=== PATIENT | female | born 1975 | race Caucasian/White ===

== ENCOUNTER 2019-11-18 19:08 | Emergency (ER) | payer SELFPAY ==
--- OUTSIDE RECORDS SUMMARY | 2019-11-18 19:10 | XMS REPORT ---
:1975 [facility] Address [facility] [address] Quintanilla [address] [place] [id number] Care Team Providers Name Role Phone Unavailable Unavailable Unavailable Problems This patient has no known problems. Allergies, Adverse Reactions, Alerts This patient has no known allergies or adverse reactions. Medications This patient has no known medications.
[2019-11-18 19:59] LABS: Protime INR 1.02
--- NOTE | 2019-11-18 20:02 | RAD REPORT ---
EXAM DESCRIPTION: Roselia Single View11/18/2019 7:50 pm CLINICAL HISTORY: Chest pain COMPARISON: 2017 FINDINGS: The lungs appear clear of acute infiltrate. The heart is normal size IMPRESSION: No acute abnormalities displayed
[2019-11-18 20:11] LABS: ALT/SGPT 14 U/L (12-78); AST/SGOT 15 U/L (15-37); Albumin 3.5 g/dL (3.4-5.0); Alkaline Phosphatase 95 U/L (45-117); BUN Blood Urea Nitrogen 8 mg/dL (7-18); Bicarbonate 27 mmol/L (21-32); Bilirubin Direct < 0.1 mg/dL (0-0.2); Bilirubin Total 0.2 mg/dL (0.2-1.0); Glucose Level 86 mg/dL (74-106); Magnesium 2.1 mg/dL (1.8-2.4); Potassium 3.8 mmol/L (3.5-5.1); Protein, Total 8.2 g/dL (6.4-8.2); Sodium Level 140 mmol/L (136-145); Troponin (Emerg Dept Use Only) < 0.02 ng/mL (0.0-0.045)
[2019-11-18 20:31] LABS: Absolute Lymphocytes (CBC) 2.3 K/uL (0.7-4.9); Basophils % 1.3 % (0-1.3); Hematocrit 28.8 % (36.0-45.0); Lymphocytes % 31.8 % (15.3-44.8); MPV 8.8 fL (7.6-11.3); RBC Red Blood Cell Count 4.64 M/uL (3.86-4.86)
--- NOTE | 2019-11-18 20:54 | ER ---
Nurse's Notes [facility] Name: Lennie Russell Age: 44 yrs Sex: Female : 1975 Arrival Date: 11/18/2019 Time: 19:09 Bed 28 Private MD: Diagnosis: Furuncle of groin;Chest pain, unspecified;Anemia, unspecified Presentation: 11/18 19:39 Presenting complaint: Patient states: I HAVE HAD LEFT ARM NUMBNESS AND SORENESS AND MY ls4 CHEST HURTS WHEN I MOVE FOR THE LAST 3 DAYS. I ALSO HAVE BUG BITES ON MY PRIVATE AREA. Transition of care: patient was not received from another setting of care. Onset of symptoms is unknown. Risk Assessment: Do you want to hurt yourself or someone else? Patient reports no desire to harm self or others. Initial Sepsis Screen: Does the patient meet any 2 criteria? No. Patient's initial sepsis screen is negative. Does the patient have a suspected source of infection? No. Patient's initial sepsis screen is negative. Care prior to arrival: None. 19:39 Method Of Arrival: EMS: [facility] ls4 19:39 Acuity: KATHERINE 3 ls4 Triage Assessment: 19:49 General: Appears in no apparent distress. Behavior is calm, cooperative. Pain: Denies ls4 pain. Cardiovascular: Reports chest pain. Respiratory: Reports shortness of breath at rest. GI: No deficits noted. : No deficits noted. Derm: No deficits noted. Musculoskeletal: No deficits noted. 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 - Coronavirus screen:: The patient has NOT traveled to [place] in the past 14 days. The patient has NOT had contact with known/suspected case of Coronavirus? Proceed with normal triage procedures. - Social history:: Smoking status: Patient reports the use of cigarette tobacco products, Patient uses alcohol, street drugs, marijuana. - Ebola Screening: : No symptoms or risks identified at this time. Screenin:54 Abuse screen: Denies threats or abuse. Denies injuries from another. Nutritional ls4 screening: No deficits noted. Tuberculosis screening: No symptoms or risk factors identified. Fall Risk None identified. Assessment: 19:53 Reassessment: Patient appears in no apparent distress at this time. Patient and/or ls4 family updated on plan of care and expected duration. Pain level reassessed. Patient is alert, oriented x 3, equal unlabored respirations, skin warm/dry/pink. Pain: Complains of pain in left supraclavicular area, left clavicle, anterior aspect of left upper chest and mid-sternal area Pain radiates to left arm. Neuro: No deficits noted. Cardiovascular: Denies diaphoresis, fatigue, lightheadedness, nausea, palpitations, shortness of breath, syncope, vomiting. Respiratory: No deficits noted. Derm: SMALL PUSTULES X 3 ON LABIA. 20:00 Also complains of no other symptoms. General: Appears in no apparent distress. ls4 comfortable, Behavior is calm, cooperative. Pain: Pain currently is 3 out of 10 on a pain scale. Pain began gradually. 20:00 GI: No deficits noted. : No deficits noted. ls4 21:13 Reassessment: Patient appears in no apparent distress at this time. Patient and/or ls4 family updated on plan of care and expected duration. Pain level reassessed. Patient is alert, oriented x 3, equal unlabored respirations, skin warm/dry/pink. Vital Signs: 19:22 BP 145 / 104; Pulse 81; Resp 13; Temp 97.7(O); Pulse Ox 100% on R/A; mg2 20:00 BP 142 / 100; Pulse 89; Resp 14; Temp 98.0(O); Pulse Ox 100% on R/A; Pain 3/10; ls4 21:27 BP 132 / 83; Pulse 78; Resp 14; Temp 98.0(O); Pulse Ox 100% on R/A; Pain 0/10; ls4 Vitals: 20:00 Cardiac Rhythm Assessment Regular Sinus rhythm. ls4 ED Course: 19:09 Patient arrived in ED. cf2 19:10 Patient has correct armband on for positive identification. Placed in gown. Bed in low ls4 position. Call light in reach. Side rails up X 1. 19:10 media monitor on. Pulse ox on. NIBP on. ls4 19:12 Manny Quiroz NP is PHCP. pm1 19:12 Taz Saxena MD is Attending Physician. pm1 19:29 Bree Benedict, RN is Primary Nurse. ls4 19:34 No provider procedures requiring assistance completed. Inserted saline lock: 20 gauge mg2 in left antecubital area, using aseptic technique. Blood collected. 19:40 Triage completed. ls4 19:51 Arm band placed on right wrist. Patient PT IS IN CUSTODY BY [place]. ls4 OFFICERS OUTSIDE OF DOOR. EKG completed in triage. Results shown to MD. 19:56 Initial lab(s) drawn, by ED staff, sent to lab. Patient maintains SpO2 saturation ls4 greater than 95% on room air. 21:28 IV discontinued, intact, bleeding controlled, No redness/swelling at site. Pressure ls4 dressing applied. Administered Medications: 20:54 Not Given (Other Intervention Used): Tetanus-Diphtheria Toxoid Adult 0.5 ml IM once ls4 21:04 Drug: Bactrim (160 mg-800 mg (DS) 1 tablet Route: PO; ls4 21:33 Follow up: Response: No adverse reaction; Marked relief of symptoms ls4 Outcome: 20:53 Discharge ordered by MD. pm1 21:09 Condition: stable ls4 21:11 Discharge instructions given to patient, Instructed on discharge instructions, follow ls4 up and referral plans. medication usage, Demonstrated understanding of instructions, follow-up care, medications, Prescriptions given X 1. 21:32 Patient left the ED. ls4 21:33 Discharged to Law Enforcement ls4 Signatures: Manny Quiroz NP GRINDER DRESSER pm1 Handy Olson RN RN mg2 Bree Benedict RN RN ls4 Carlito Rodríguez cf2 Corrections: (The following items were deleted from the chart) 21:11 21:09 Discharge instructions given to patient, family, Instructed on discharge ls4 instructions, follow up and referral plans. medication usage, safety practices, Demonstrated understanding of instructions, follow-up care, medications, ls4 21:33 21:09 Discharged to home ambulatory, with family, ls4 ls4
--- NOTE | 2019-11-18 20:54 | EDPHYS ---
Physician Documentation [facility] Name: Lennie Russell Age: 44 yrs Sex: Female : 1975 Arrival Date: 11/18/2019 Time: 19:09 Bed 28 Private MD: ED Physician Taz Saxena HPI: 11/18 19:19 This 44 yrs old Female presents to ER via EMS with complaints of Groin Pain, pm1 Chest Pain. 19:19 The patient or guardian reports chest pain that is located primarily in the chest pm1 diffusely. Onset: 3 day(s) ago. The pain does not radiate. Associated signs and symptoms: Pertinent negatives: abdominal pain, cough, diaphoresis, dizziness, headache, nausea, shortness of breath, vomiting. The chest pain is described as sharp. Modifying factors: the symptoms are aggravated by pain to groin area. Patient was just arrested for unpaid traffic violations. She has had chest pain for the past 3 days that she relates to onset of pimples to groin area that started after she shaved her pubic hair. 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 - Coronavirus screen:: The patient has NOT traveled to [place] in the past 14 days. The patient has NOT had contact with known/suspected case of Coronavirus? Proceed with normal triage procedures. - Social history:: Smoking status: Patient reports the use of cigarette tobacco products, Patient uses alcohol, street drugs, marijuana. - Ebola Screening: : No symptoms or risks identified at this time. ROS: 19:19 Constitutional: Negative for fever, chills, and weight loss, Eyes: Negative for injury, pm1 pain, redness, and discharge, ENT: Negative for injury, pain, and discharge, Neck: Negative for injury, pain, and swelling. 19:19 Respiratory: Negative for shortness of breath, cough, wheezing, and pleuritic chest pain, Abdomen/GI: Negative for abdominal pain, nausea, vomiting, diarrhea, and constipation, Back: Negative for injury and pain, : Negative for injury, bleeding, discharge, and swelling. 19:19 MS/Extremity: Negative for injury and deformity. 19:19 Neuro: Negative for headache, weakness, numbness, tingling, and seizure. 19:19 Cardiovascular: Positive for chest pain, Negative for edema, palpitations. 19:19 Skin: Positive for pustules, of the groin. Exam: 19:19 Constitutional: This is a well developed, well nourished patient who is awake, alert, pm1 and in no acute distress. Head/Face: Normocephalic, atraumatic. Neck: Trachea midline, no thyromegaly or masses palpated, and no cervical lymphadenopathy. Supple, full range of motion without nuchal rigidity, or vertebral point tenderness. No Meningismus. Chest/axilla: Normal chest wall appearance and motion. Nontender with no deformity. No lesions are appreciated. Cardiovascular: Regular rate and rhythm with a normal S1 and S2. No gallops, murmurs, or rubs. Normal PMI, no JVD. No pulse deficits. Respiratory: Lungs have equal breath sounds bilaterally, clear to auscultation and percussion. No rales, rhonchi or wheezes noted. No increased work of breathing, no retractions or nasal flaring. Abdomen/GI: Soft, non-tender, with normal bowel sounds. No distension or tympany. No guarding or rebound. No evidence of tenderness throughout. Back: No spinal tenderness. No costovertebral tenderness. Full range of motion. 19:19 MS/ Extremity: Pulses equal, no cyanosis. Neurovascular intact. Full, normal range of motion. 19:19 Skin: Appearance: normal except for affected area, lesion(s), located on the right side of groin, small 2 mm pustule present to right labia majora. 19:19 Neuro: Orientation: is normal, Motor: is normal, moves all fours. Vital Signs: 19:22 BP 145 / 104; Pulse 81; Resp 13; Temp 97.7(O); Pulse Ox 100% on R/A; mg2 20:00 BP 142 / 100; Pulse 89; Resp 14; Temp 98.0(O); Pulse Ox 100% on R/A; Pain 3/10; ls4 21:27 BP 132 / 83; Pulse 78; Resp 14; Temp 98.0(O); Pulse Ox 100% on R/A; Pain 0/10; ls4 MDM: 19:16 Patient medically screened. pm1 20:51 Data reviewed: vital signs. Data interpreted: Pulse oximetry: on room air is 100 %. pm1 Interpretation: normal. Counseling: I had a detailed discussion with the patient and/or guardian regarding: the historical points, exam findings, and any diagnostic results supporting the discharge/admit diagnosis, lab results, radiology results, the need for outpatient follow up, to return to the emergency department if symptoms worsen or persist or if there are any questions or concerns that arise at home. 11/18 19:19 Order name: Basic Metabolic Panel pm1 11/18 19:19 Order name: CBC with Diff pm11/18 19:19 Order name: LFT's pm11/18 19:19 Order name: Magnesium pm11/18 19:19 Order name: PT-INR pm1 11/18 19:19 Order name: Troponin (emerg Dept Use Only) pm1 11/18 19:19 Order name: XRAY Chest (1 view) pm1 11/18 20:01 Order name: Protime (+INR); Complete Time: 20:07 EDMS 11/18 20:12 Order name: Basic Metabolic Panel; Complete Time: 20:35 EDMS 11/18 20:12 Order name: Liver (Hepatic) Function; Complete Time: 20:35 EDMS 11/18 20:12 Order name: Troponin (Emerg Dept Use Only); Complete Time: 20:35 EDMS 11/18 20:12 Order name: Magnesium; Complete Time: 20:35 EDMS 11/18 20:38 Order name: CBC with Automated Diff; Complete Time: 21:18 EDMS 11/18 21:11 Order name: CBC Smear Scan; Complete Time: 21:18 EDMS 11/18 19:19 Order name: EKG; Complete Time: 19:20 pm11/18 19:19 Order name: Cardiac monitoring; Complete Time: 19:24 pm11/18 19:19 Order name: EKG - Nurse/Tech; Complete Time: 19:25 pm11/18 19:19 Order name: IV Saline Lock; Complete Time: 19:34 pm11/18 19:19 Order name: Labs collected and sent; Complete Time: 19:34 pm11/18 19:19 Order name: O2 Per Protocol; Complete Time: 19:25 pm1 11/18 19:19 Order name: O2 Sat Monitoring; Complete Time: 19:25 pm1 11/18 19:19 Order name: Urine Dipstick-Ancillary (obtain specimen); Complete Time: 19:44 pm1 11/18 19:19 Order name: Urine Test (obtain specimen); Complete Time: 19:44 pm1 11/18 20:10 Order name: RAD; Complete Time: 20:35 EDMS Administered Medications: 20:54 Not Given (Other Intervention Used): Tetanus-Diphtheria Toxoid Adult 0.5 ml IM once ls4 21:04 Drug: Bactrim (160 mg-800 mg (DS) 1 tablet Route: PO; ls4 21:33 Follow up: Response: No adverse reaction; Marked relief of symptoms ls4 Disposition: 11/18/19 20:53 Discharged to Home. Impression: Furuncle of groin, Chest pain, unspecified, Anemia, unspecified. - Condition is Stable. - Discharge Instructions: Anemia, Nonspecific, Nonspecific Chest Pain, Ingrown Hair. - Prescriptions for Bactrim DS 800- 160 mg Oral Tablet - take 1 tablet by ORAL route every 12 hours for 10 days; 20 tablet. Diclofenac Sodium 75 mg Oral Tablet Sustained Release - take 1 tablet by ORAL route 2 times per day; 30 tablet. Bactroban 2 % Topical Ointment - Apply to affected area 1 application by TOPICAL route every 12 hours; 30 gram. - Medication Reconciliation Form, Thank You Letter, Antibiotic Education, Prescription Opioid Use form. - Follow up: Emergency Department; When: As needed; Reason: Worsening of condition. Follow up: Private Physician; When: 2 - 3 days; Reason: Recheck today's complaints, Continuance of care, Re-evaluation by your physician. - Problem is new. - Symptoms have improved. Signatures: Dispatcher [employer] EDMS Manny Quiroz NP ELIGIBILITY SUPERVISOR pm1 Bree Benedict RN RN ls4 Corrections: (The following items were deleted from the chart) 21:18 20:53 11/18/2019 20:53 Discharged to Home. Impression: Furuncle of groin; Chest pain, pm1 unspecified. Condition is Stable. Forms are Medication Reconciliation Form, Thank You Letter, Antibiotic Education, Prescription Opioid Use. Follow up: Emergency Department; When: As needed; Reason: Worsening of condition. Follow up: Private Physician; When: 2 - 3 days; Reason: Recheck today's complaints, Continuance of care, Re-evaluation by your physician. Problem is new. Symptoms have improved. pm1 21:32 21:18 11/18/2019 20:53 Discharged to Home. Impression: Furuncle of groin; Chest pain, ls4 unspecified; Anemia, unspecified. Condition is Stable. Discharge Instructions: Nonspecific Chest Pain, Ingrown Hair. Prescriptions for Bactroban 2 % Topical Ointment - Apply to affected area 1 application by TOPICAL route every 12 hours; 30 gram, Bactrim DS 800-160 mg Oral Tablet - take 1 tablet by ORAL route every 12 hours for 10 days; 20 tablet, Diclofenac Sodium 75 mg Oral Tablet Sustained Release - take 1 tablet by ORAL route 2 times per day; 30 tablet. and Forms are Medication Reconciliation Form, Thank You Letter, Antibiotic Education, Prescription Opioid Use. Follow up: Emergency Department; When: As needed; Reason: Worsening of condition. Follow up: Private Physician; When: 2 - 3 days; Reason: Recheck today's complaints, Continuance of care, Re-evaluation by your physician. Problem is new. Symptoms have improved. pm1
[2019-11-18] MEDS ORDERED: SMZ./TMP. 800/160 MG TABLET ONE (21:03)
[2019-11-18 21:09] LABS: Platelet Estimate INCR; Urine White Blood Cell Casts OK
[2019-11-18 21:10] LABS: Blood Morphology Comment NOTED (NOT SEEN); Burr Cells 1+; Elliptocytes 2+; Hypochromasia 2+; Platelets, Giant SEEN; Teardrop Cell 1+
--- NOTE | 2019-11-19 08:53 | EKG ---
Test Date: 2019-11-18 Test Time: 19:33:46 Resident Physician In Radiology: KIANNA MEASUREMENT RESULTS: Intervals: Rate: 84 UT: 140 QRSD: 74 QT: 364 QTc: 430 [place]lette: P: 66 UT: 140 QRS: 35 T: 56 INTERPRETIVE STATEMENTS: Normal sinus rhythm Normal ECG Compared to ECG 11/10/2016 22:29:02 No significant changes Electronically Signed On 11-19-19 08:52:34 ADJUNCT SOCIOLOGY PROFESSOR by Roger Lopez
[2019-11-20 11:53] VITALS: O2SAT 100
[2019-11-20 11:55] VITALS: TEMP 98
[2019-11-20 11:57] VITALS: BP 132/83
== END 2019-11-18 21:32 | disposition home or self-care (01) ==
LOC: ER 19:08
DX: L02.224 Furuncle of groin (principal); R07.9 Chest pain, unspecified; D64.9 Anemia, unspecified; F17.210 Nicotine dependence, cigarettes, uncomplicated; Z72.89 Other problems related to lifestyle; F12.90 Cannabis use, unspecified, uncomplicated
CPT/HCPCS: 36415; 71045; 80048; 80076; 83735; 84484; 85025; 85610; 93005; 99285

== ENCOUNTER 2020-02-27 16:56 | Emergency (ER) | payer SELFPAY ==
--- OUTSIDE RECORDS SUMMARY | 2020-02-27 16:58 | XMS REPORT ---
:1975 Author Organization [facility] t Address [address] Quintanilla [address] [place] [id number] Care Team Providers Name Role Phone Unavailable Unavailable Unavailable Problems This patient has no known problems. Allergies, Adverse Reactions, Alerts This patient has no known allergies or adverse reactions. Medications This patient has no known medications. Procedures This patient has no known procedures. Results This patient has no known results.
--- NOTE | 2020-02-27 18:09 | RAD REPORT ---
EXAM DESCRIPTION: RAD - Chest Single View - 02/27/2020 6:01 pm CLINICAL HISTORY: CHEST PAIN COMPARISON: November 18 TECHNIQUE: AP portable chest image was obtained 02/27/2020 6:01 pm . FINDINGS: No acute lung parenchymal process. Interstitial pattern matches comparison. Heart and vasc ulature are normal. No measurable pleural effusion and no pneumothorax. No acute bony abnormality see n. Left shoulder degenerative changes are stable. No acute aortic findings suspected. IMPRESSION: No acute cardiopulmonary process. No significant change from comparison.
[2020-02-27 18:25] LABS: Absolute Lymphocytes (CBC) 1.8 K/uL (0.7-4.9); Basophils % 0.5 % (0-1.3); Hematocrit 31.7 % (36.0-45.0); Lymphocytes % 21.8 % (15.3-44.8); RBC Red Blood Cell Count 4.96 M/uL (3.86-4.86)
[2020-02-27 18:26] LABS: Protime INR 0.96
[2020-02-27 18:40] LABS: ALT/SGPT 17 U/L (12-78); AST/SGOT 11 U/L (15-37); Albumin 3.4 g/dL (3.4-5.0); Alkaline Phosphatase 102 U/L (45-117); BUN Blood Urea Nitrogen 12 mg/dL (7-18); Bicarbonate 23 mmol/L (21-32); Bilirubin Direct < 0.1 mg/dL (0-0.2); Bilirubin Total 0.1 mg/dL (0.2-1.0); Glucose Level 93 mg/dL (74-106); Magnesium 2.1 mg/dL (1.8-2.4); NT PRO-BNP 38 pg/mL (<125); Potassium 4.6 mmol/L (3.5-5.1); Protein, Total 8.4 g/dL (6.4-8.2); Sodium Level 139 mmol/L (136-145); Troponin (Emerg Dept Use Only) < 0.02 ng/mL (0.0-0.045)
--- NOTE | 2020-02-27 19:13 | ER ---
Nurse's Notes [facility] Name: Lennie Russell Age: 44 yrs Sex: Female : 1975 Arrival Date: 02/27/2020 Time: 16:57 Bed 7 Private MD: Diagnosis: Chest pain, unspecified;Dental caries Presentation: 02/26 16:58 Chief complaint: EMS states: called out for a toothache that started 3 days ago, that em turned into a headache then into chest pain, pt states she is stressed, pt in [employer] custody, officer at bedside, VSS, EKG SR. Coronavirus screen: Proceed with normal triage. Patient reports a cough. Patient reports shortness of breath or difficulty breathing. Patient denies measured and/or subjective temperature greater than 100.4F prior to today's visit. Patient denies travel on a cruise ship or to a country the [facility] currently lists as an affected area. Patient denies contact with known and/or suspected case of COVID-19. Ebola Screen: Patient negative for fever greater than or equal to 101.5 degrees Fahrenheit, and additional compatible Ebola Virus Disease symptoms Patient denies exposure to infectious person. Patient denies travel to an Ebola-affected area in the 21 days before illness onset. No symptoms or risks identified at this time. Initial Sepsis Screen: Does the patient meet any 2 criteria? No. Patient's initial sepsis screen is negative. Does the patient have a suspected source of infection? No. Patient's initial sepsis screen is negative. Risk Assessment: Do you want to hurt yourself or someone else? Patient reports no desire to harm self or others. Onset of symptoms was February 27, 2020. 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 - Social history:: Smoking status: Patient reports the use of cigarette tobacco products, denies chronic smoking, but will smoke occasionally. Screenin:58 Abuse screen: Denies threats or abuse. Denies injuries from another. Nutritional ph screening: No deficits noted. Tuberculosis screening: No symptoms or risk factors identified. Fall Risk None identified. Assessment: 17:56 General: Appears in no apparent distress. comfortable, Behavior is calm, cooperative, ph appropriate for age, Denies fever, feeling ill. Pain: Complains of pain in chest Pain does not radiate. Quality of pain is described as sharp, Pain began suddenly. Neuro: Level of Consciousness is awake, alert, obeys commands, Oriented to person, place, time, situation. Cardiovascular: Reports chest pain, Denies lightheadedness, nausea, shortness of breath, Capillary refill < 3 seconds in bilateral fingers Patient's skin is warm and dry. Respiratory: Reports cough that is non-productive, Airway is patent Respiratory effort is even, unlabored, Respiratory pattern is regular, symmetrical, Denies shortness of breath. GI: No signs and/or symptoms were reported involving the gastrointestinal system. EENT: Reports pain in mouth. Derm: Skin is intact, Skin is pink, warm \T\ dry. Musculoskeletal: Circulation, motion, and sensation intact. Range of motion: intact in all extremities. 19:10 Reassessment: Patient appears in no apparent distress at this time. Patient and/or ph family updated on plan of care and expected duration. Pain level reassessed. Patient is alert, oriented x 3, equal unlabored respirations, skin warm/dry/pink. 19:27 Reassessment: Patient appears in no apparent distress at this time. Patient is alert, rr5 oriented x 3, equal unlabored respirations, skin warm/dry/pink. discharge instruction given and explained without complaints made. assisted by [employer] police. Vital Signs: 16:58 BP 131 / 92; Pulse 90; Resp 20; Temp 97.8; Pulse Ox 100% on R/A; Weight 63.5 kg; Height em 5 ft. 4 in. (162.56 cm); Pain 7/10; 19:11 BP 158 / 93; Pulse 98; Resp 20; Pulse Ox 98% on R/A; ph 16:58 Body Mass Index 24.03 (63.50 kg, 162.56 cm) em ED Course: 16:57 Patient arrived in ED. em 16:59 Tu Gross MD is Attending Physician. [facility] 17:02 Triage completed. em 17:02 Arm band placed on. em 17:30 Yas Walters, RN is Primary Nurse. ph 17:56 Yas Walters, KRISTY is Primary Nurse. ph 17:59 Patient has correct armband on for positive identification. Placed in gown. Bed in low ph position. Call light in reach. Side rails up X 1. library monitor on. Pulse ox on. NIBP on. Door closed. Noise minimized. Warm blanket given. 17:59 Patient maintains SpO2 saturation greater than 95% on room air. ph 18:02 XRAY Chest (1 view) In Process Unspecified. EDMS 19:11 No provider procedures requiring assistance completed. ph 19:12 Rodney More DDS is Referral Physician. 7 19:28 Patient did not have IV access during this emergency room visit. rr5 Administered Medications: 19:05 Drug: TORadol 30 mg Route: IM; Site: left deltoid; rr5 19:28 Follow up: Response: No adverse reaction rr5 19:10 CANCELLED (Other Intervention Used): TORadol 30 mg IVP once ph Outcome: 19:13 Discharge ordered by . 7 19:28 Discharged to Law Enforcement rr5 19:28 Condition: stable 19:28 Discharge instructions given to patient, Instructed on discharge instructions, follow up and referral plans. medication usage, Demonstrated understanding of instructions, follow-up care, medications, Prescriptions given X 1. 19:31 Patient left the ED. rr5 Signatures: Dispatcher [employer] EDDane Mora RN RN Yas Walters RN RN Presley Moralez RN RN rr5 Tu Gross MD MD 7 Corrections: (The following items were deleted from the chart) 17:03 16:58 Chief complaint: EMS states: called out for a toothache that started 3 days ago, em that turned into a headache then into chest pain, pt states she is stressed, pt in [employer] custody, officer at bedside em
--- NOTE | 2020-02-27 19:13 | EDPHYS ---
Physician Documentation [facility] [place] Name: Lennie Russell Age: 44 yrs Sex: Female : 1975 Arrival Date: 02/27/2020 Time: 16:57 Bed 7 Private MD: ED Physician Tu Gross HPI: 02/26 17:37 This 44 yrs old Female presents to ER via EMS with complaints of Chest Pain. mh7 17:37 The patient or guardian reports chest pain that is located primarily in the anterior mh7 chest wall. Onset: 3 day(s) ago. The pain does not radiate. Associated signs and symptoms: Pertinent positives: cough, tootache, Pertinent negatives: abdominal pain, diaphoresis, dizziness, headache, lower extremity pain, lower extremity swelling, lightheadedness, nausea, near syncope, palpitations, recent travel, shortness of breath, syncope, vomiting. The chest pain is described as sharp. Duration: The patient or guardian reports multiple episodes, that are intermittent, that wax and wane, with no pattern. Modifying factors: The symptoms are alleviated by nothing. the symptoms are aggravated by nothing. Severity of pain: At its worst the pain was moderate today, in the emergency department the pain is unchanged. The patient has experienced similar episodes in the past, several times. Patient brought to the ED from [facility] due to chest pain for 3 days intermittently. Patient states that she has had a toothache as well. She denies any fever, SOB, nausea, vomiting, or recent travel.. [employer]: 19:11 LMP N/A - Irregular menses ph Historical: - Allergies: 17:02 No Known Allergies; em - PMHx: 17:02 ventricular septal defect; em - PSHx: 17:02 Tubal ligation; em - Immunization history:: Adult Immunizations up to date. - Social history:: Smoking status: Patient reports the use of cigarette tobacco products, denies chronic smoking, but will smoke occasionally. ROS: 17:37 Constitutional: Negative for fever, chills, and weight loss, Eyes: Negative for injury, mh7 pain, redness, and discharge, Neck: Negative for injury, pain, and swelling, Abdomen/GI: Negative for abdominal pain, nausea, vomiting, diarrhea, and constipation, Back: Negative for injury and pain, : Negative for injury, bleeding, discharge, and swelling, MS/Extremity: Negative for injury and deformity, Skin: Negative for injury, rash, and discoloration, Neuro: Negative for headache, weakness, numbness, tingling, and seizure, Allergy/Immunology: Negative for hives, rash, and allergies, Endocrine: Negative for neck swelling, polydipsia, polyuria, polyphagia, and marked weight changes, Hematologic/Lymphatic: Negative for swollen nodes, abnormal bleeding, and unusual bruising. Exam: 17:37 Constitutional: This is a well developed, well nourished patient who is awake, alert, mh7 and in no acute distress. Head/Face: Normocephalic, atraumatic. Neck: Trachea midline, no thyromegaly or masses palpated, and no cervical lymphadenopathy. Supple, full range of motion without nuchal rigidity, or vertebral point tenderness. No Meningismus. Chest/axilla: Normal chest wall appearance and motion. Nontender with no deformity. No lesions are appreciated. Cardiovascular: Regular rate and rhythm with a normal S1 and S2. No gallops, murmurs, or rubs. Normal PMI, no JVD. No pulse deficits. Respiratory: Lungs have equal breath sounds bilaterally, clear to auscultation and percussion. No rales, rhonchi or wheezes noted. No increased work of breathing, no retractions or nasal flaring. Abdomen/GI: Soft, non-tender, with normal bowel sounds. No distension or tympany. No guarding or rebound. No evidence of tenderness throughout. Back: No spinal tenderness. No costovertebral tenderness. Full range of motion. Skin: Warm, dry with normal turgor. Normal color with no rashes, no lesions, and no evidence of cellulitis. MS/ Extremity: Pulses equal, no cyanosis. Neurovascular intact. Full, normal range of motion. Neuro: Awake and alert, GCS 15, oriented to person, place, time, and situation. Cranial nerves II-XII grossly intact. Motor strength 5/5 in all extremities. Sensory grossly intact. Cerebellar exam normal. Normal gait. 17:37 Psych: Behavior/mood is anxious. 17:45 ECG was reviewed by the Attending Physician. 7 17:53 ENT: External ear(s): are unremarkable, Ear canal(s): are normal, TM's: are normal, mh7 Nose: is normal, Mouth: is normal, Dental exam: dental caries, that is moderate, diffusely, Voice: is normal. Vital Signs: 16:58 BP 131 / 92; Pulse 90; Resp 20; Temp 97.8; Pulse Ox 100% on R/A; Weight 63.5 kg; Height em 5 ft. 4 in. (162.56 cm); Pain 7/10; 19:11 BP 158 / 93; Pulse 98; Resp 20; Pulse Ox 98% on R/A; ph 16:58 Body Mass Index 24.03 (63.50 kg, 162.56 cm) em MDM: 17:21 Patient medically screened. mh7 19:09 Differential diagnosis: acute myocardial infarction, coronary artery disease chest wall mh7 pain, costochondritis, pneumonia. HEART Score: History: Slightly Suspicious (0), ECG: Normal (0), Age: < or = 45 years (0), Risk Factors: 1 or 2 risk factors (1), [Active Smoker] Troponin: < or = 1 x Normal Limit (0), Total Score = 1. Data reviewed: vital signs, nurses notes, old medical records, lab test result(s), cardiac enzymes, CBC, electrolytes, EKG, radiologic studies, plain films. Data interpreted: court recording monitor: rate is 90 beats/min, rhythm is normal sinus rhythm, regular, Interpretation: normal rate, normal rhythm, Pulse oximetry: on room air is 100 %. Interpretation: normal. Counseling: I had a detailed discussion with the patient and/or guardian regarding: the historical points, exam findings, and any diagnostic results supporting the discharge/admit diagnosis, lab results, radiology results, the need for outpatient follow up. 02/27 07:50 ED course: Feels better, NAD, VSS, no focal neurological deficits. No chest pain, SOB, mh7 nausea, vomiting, or other complaints. Discussed all test results and findings with the patient and answered all of her questions. She will follow up with her doctor but will return to the ED if worsening of symptoms or other concerns.. 02/26 17:29 Order name: Basic Metabolic Panel; Complete Time: 18:55 7 02/26 17:29 Order name: CBC with Diff; Complete Time: 18:55 7 02/26 17:29 Order name: LFT's; Complete Time: 18:55 [facility] 02/26 17:29 Order name: Magnesium; Complete Time: 18:55 [facility] 02/26 17:29 Order name: NT PRO-BNP; Complete Time: 18:55 [facility] 02/26 17:29 Order name: PT-INR; Complete Time: 18:55 [facility] 02/26 17:29 Order name: Troponin (emerg Dept Use Only); Complete Time: 18:55 [facility] 02/26 17:29 Order name: XRAY Chest (1 view); Complete Time: 18:40 [facility] 02/26 17:29 Order name: UDS [facility] 02/26 17:29 Order name: Test, Serum; Complete Time: 18:40 [facility] 02/26 19:13 Order name: Urine Dipstick--Ancillary (enter results) [facility] 02/26 19:13 Order name: Urine --Ancillary (enter results) [facility] 02/26 17:29 Order name: EKG; Complete Time: 17:30 [facility] 02/26 17:29 Order name: Cardiac monitoring; Complete Time: 18:03 [facility] 02/26 17:29 Order name: EKG - Nurse/Tech; Complete Time: 18:20 [facility] 02/26 17:29 Order name: Labs collected and sent; Complete Time: 18:03 [facility] 02/26 17:29 Order name: O2 Per Protocol; Complete Time: 18:03 [facility] 02/26 17:29 Order name: O2 Sat Monitoring; Complete Time: 18:03 7 EC/22 17:45 Rate is 97 beats/min. Rhythm is regular. QRS [place] is Normal. MS interval is normal. QRS mh7 interval is normal. QT interval is normal. No Q waves. T waves are Normal. No ST changes noted. Administered Medications: 19:05 Drug: TORadol 30 mg Route: IM; Site: left deltoid; rr5 19:28 Follow up: Response: No adverse reaction rr5 19:10 CANCELLED (Other Intervention Used): TORadol 30 mg IVP once ph Disposition: 02/27/20 19:13 Discharged to Home. Impression: Chest pain, unspecified, Dental caries. - Condition is Stable. - Discharge Instructions: Nonspecific Chest Pain, Afws-at-Tays, Dental Caries, Bbly-wl-Yttw. - Prescriptions for Augmentin 500- 125 mg Oral Tablet - take 1 tablet by ORAL route every 8 hours for 10 days; 30 tablet. - Medication Reconciliation Form, Thank You Letter, Antibiotic Education, Prescription Opioid Use form. - Follow up: Private Physician; When: 1 - 2 days; Reason: Worsening of condition, Re-evaluation by your physician. Follow up: Rodney More DDS; When: 2 - 3 days; Reason: Worsening of condition, Re-evaluation by your physician. - Problem is chronic. - Symptoms are resolved. Signatures: Dispatcher [employer] Dane Oh RN RN Yas Walters RN RN ph Presley Moralez RN RN rr5 Tu Gross MD MD [facility] Corrections: (The following items were deleted from the chart) 19:10 18:55 TORadol 30 mg IVP once ordered. [facility] 19:28 19:13 02/27/2020 19:13 Discharged to Home. Impression: Chest pain, unspecified; Dental rr5 caries. Condition is Stable. Forms are Medication Reconciliation Form, Thank You Letter, Antibiotic Education, Prescription Opioid Use. Follow up: Private Physician; When: 1 - 2 days; Reason: Worsening of condition, Re-evaluation by your physician. Follow up: Rodney More; When: 2 - 3 days; Reason: Worsening of condition, Re-evaluation by your physician. Problem is chronic. Symptoms are resolved. [facility] 19:31 19:28 02/27/2020 19:13 Discharged to Home. Impression: Chest pain, unspecified; Dental rr5 caries. Condition is Stable. Discharge Instructions: Nonspecific Chest Pain, [id number], Dental Caries, Ziqt-kg-Eslw. Prescriptions for Augmentin 500-125 mg Oral Tablet - take 1 tablet by ORAL route every 8 hours for 10 days; 30 tablet. and Forms are Medication Reconciliation Form, Thank You Letter, Antibiotic Education, Prescription Opioid Use. Follow up: Private Physician; When: 1 - 2 days; Reason: Worsening of condition, Re-evaluation by your physician. Follow up: Rodney More; When: 2 - 3 days; Reason: Worsening of condition, Re-evaluation by your physician. Problem is chronic. Symptoms are resolved. rr5
[2020-02-27] MEDS ORDERED: KETOROLAC 30 MG/ML INJ ONE (19:21)
[2020-02-27 19:23] LABS: Barbiturates NEGATIVE (NEGATIVE); Benzodiazepines NEGATIVE (NEGATIVE); Cocaine NEGATIVE (NEGATIVE); METHAMPHETAM POSITIVE (NEGATIVE); Methadone NEGATIVE (NEGATIVE); Opiates NEGATIVE (NEGATIVE); Phencyclidine NEGATIVE (NEGATIVE); THC Cannibis NEGATIVE (NEGATIVE)
[2020-02-27 19:24] LABS: Urine Blood NEGATIVE (NEG); Urine Glucose NEGATIVE (NEG); Urine Protein TRACE (NEG); Urine Specific Gravity >1.030 (1.005-1.030)
[2020-02-27 19:47] VITALS: TEMP 97.8
[2020-02-27 19:52] VITALS: BP 158/93; O2SAT 98
--- NOTE | 2020-02-28 08:05 | EKG ---
Test Date: 2020-02-27 Test Time: 17:06:01 Account Executive Sales Representative: YANA MEASUREMENT RESULTS: Intervals: Rate: 97 MS: 126 QRSD: 72 QT: 320 QTc: 406 [place]: P: 78 MS: 126 QRS: 26 T: 69 INTERPRETIVE STATEMENTS: Normal sinus rhythm Normal ECG Compared to ECG 11/18/2019 19:33:46 No significant changes Electronically Signed On 02-28-20 08:04:08 CDT by Baldev Tian
== END 2020-02-27 19:31 | disposition home or self-care (01) ==
LOC: ER 16:56
DX: K02.9 Dental caries, unspecified (principal); F17.210 Nicotine dependence, cigarettes, uncomplicated
CPT/HCPCS: 36415; 71045; 80048; 80076; 80307; 81003; 81025; 83735; 83880; 84484; 84703; 85025; 85610; 93005; 96372; 99285

== ENCOUNTER 2022-10-09 13:08 | Emergency (ER) | payer SELFPAY ==
--- OUTSIDE RECORDS SUMMARY | 2022-10-09 13:18 | XMS REPORT | Continuity of Care Document ---
:1975 Author Organization [facility] t Address [address] [place] [id number] Care Team Providers Name Role Phone Mona Mcclelland Attending Clinician Doctor Unassigned, [place] Attending Clinician Unavailable TIGRE FAGAN Attending Clinician Unavailable Payers Payer Name Policy Type Policy Number Effective Date Expiration Date S josy MEDICAID SSI PENDING 2019 2019 PENDING 00:00:00 00:00:00 Problems Condition Condition Condition Status Onset Resolution Last Treating Co mments Source Name Details Category Date Date Treatment Clinician Date No known No known Disease Unive rs active active ity of problems problems [facility] Allergies, Adverse Reactions, Alerts Allergy Allergy Status Severity Reaction(s) Onset Inactive Treating Comm ents Source Name Type Date Date Clinician NO KNOWN Drug Active Univers ALLERGIE Class ity of S [facility] Social History Social Habit Start Date Stop Date Quantity Comments Source Exposure to SARS-CoV-2 Not sure [facility] [place] [facility] Assigned At Uni vers[facility] Smoking Status Start Date Stop Date Source Unknown if ever smoked [facility] Medications Ordered Filled Start Stop Current Ordering Indication Dosage Frequency Signature Comments Components Source Medication Medication Date Date Medication? Clinician (SIG) Name Name clindamycin 2018-10 Yes [id number] 300mg Take 1 Univers 300 mg 0-03 capsule by ity of capsule 00:00: mouth 3 [place] 00 (three) Medical times Branch daily. traMADol 2018-10 Yes [id number] 50mg Take 1 Un reyanldo (ULTRAM) 50 0-03 tablet by ity of mg tablet 00:00: mouth [place] 00 every 6 Medical (six) Branch hours as needed for Pain (scale 7-10). clindamycin 2018-10 Yes [id number] 300mg Take 1 Univers 300 mg 0-03 capsule by ity of capsule 00:00: mouth 3 (three) Medical times Branch daily. traMADol 2018- Yes [id number] 50mg Take 1 Un reynaldo (ULTRAM) 50 0-03 tablet by ity of mg tablet 00:00: mouth 00 every 6 Medical (six) Branch hours as needed for Pain (scale 7-10). Vital Signs Vital Name Observation Time Observation Value Comments Source Systolic blood 2020-09-17 00:40:00 119 mm[Hg] Univer sity of pressure [facility] Diastolic blood 2020-09-17 00:40:00 90 mm[Hg] Unive rsity of [facility] Heart rate 2020-09-17 00:40:00 107 /min [facility] Body temperature 2020-09-17 00:40:00 36.94 Safia [facility] Respiratory rate 2020-09-17 00:40:00 16 /min [facility] Body height 2020-09-17 00:40:00 162.6 cm [facility] Body weight 2020-09-17 00:40:00 65.772 kg [facility] BMI 2020-09-17 00:40:00 24.89 kg/m2 [facility] Oxygen saturation in 2020-09-17 00:40:00 99 /min [facility] Arterial blood by [facility] Pulse oximetry [facility] Procedures Procedure Date / Time Performed Performing Clinician [facility] e NOTICE OF PRIVACY 2020-09-17 00:32:07 Doctor Unassigned, No Univ [facility] Name [facility] CONSENT/REFUSAL FOR 2020-09-17 00:31:51 Doctor Unassigned, No Un [facility] DIAGNOSIS AND Name Medical Branch TREATMENT Encounters Start End Encounter Admission Attending Care Care Encounter Source Date/Time Date/Time Type Type Clinicians Facility Department ID 2020-09-16 2020-09-16 Emergency Vincent, [facility] [id number] Univers 18:48:00 20:11:00 Mona Spicer [id number] i ty of [place] [id number] [facility] [id number] [place] 084 Branch 2020-09-16 2020-09-16 Emergency X [facility] ERT [id number] Univers 18:33:00 18:33:00 ity of [facility] 2020-09-16 2020-09-16 Orders Doctor ALBARO [id number] Univers 00:00:00 00:00:00 Only Unassigned, GWYN [id number] ity of [place] [facility] [id number] Karthik as [phone] [place] [address] Branch 2019-07-09 2019-07-10 Emergency X RYLAN CATERE ERT [id number] Univers 21:52:45 00:31:00 TIGRE panchal of [facility] Results This patient has no known results.
--- NOTE | 2022-10-09 16:10 | RAD REPORT ---
EXAM DESCRIPTION: Roselia Single View10/09/2022 3:44 pm CLINICAL HISTORY: Chest pain COMPARISON: 2019 FINDINGS: The lungs appear clear of acute infiltrate. The heart is normal size IMPRESSION: No acute abnormalities displayed
[2022-10-09 16:42] LABS: Absolute Lymphocytes (CBC) 2.5 K/uL (0.7-4.9); Hematocrit 32.5 % (36.0-45.0); Lymphocytes % 21.3 % (15.3-44.8); MCV 78.3 fL (80-100); MPV 8.3 fL (7.6-11.3); RBC Red Blood Cell Count 4.15 M/uL (3.86-4.86)
[2022-10-09 16:44] LABS: Protime INR 0.91
--- NOTE | 2022-10-09 16:50 | EDPHYS ---
Physician Documentation [facility] Name: Lennie Russell Age: 46 yrs Sex: Female : 1975 Arrival Date: 10/09/2022 Time: 13:09 Bed IW1 Private MD: ED Physician Roxy Masterson HPI: 10/09 14:27 This 46 yrs old Female presents to ER via Ambulatory with complaints of Abscess - hand, jmm Chest Pain, Hand Swelling, Insect Bite. 14:27 the patient presents with a swollen area of the left arm. Onset: The symptoms/episode jmm began/occurred gradually, 1 week(s) ago. Possible cause(s): insect sting, spider bite. This is a 46-year-old female with history of VSD the presents emerged part with complaints of swelling to her left wrist. Patient states this is similar to previous abscess that she has had in the past. Patient unsure of the cause. Patient also complains of ongoing chest pain which she describes as a sharp pressure beginning this morning around 4 AM.. Historical: - Allergies: 15:36 No Known Allergies; ss - Home Meds: 15:36 None [Active]; ss - PMHx: 15:36 ventricular septal defect; ss - PSHx: 15:36 None; ss - Immunization history:: Client reports having NOT received the Covid vaccine. - Social history:: Smoking status: Patient reports the use of cigarette tobacco products, smokes one pack cigarettes per day. ROS: 14:27 Constitutional: Negative for fever, chills, and weight loss. jmm 14:27 Cardiovascular: Positive for chest pain. 14:27 MS/extremity: Positive for swelling. 14:27 All other systems are negative. Exam: 14:27 Constitutional: This is a well developed, well nourished patient who is awake, alert, jmm and in no acute distress. Head/Face: atraumatic. Eyes: EOMI, no conjunctival erythema appreciated ENT: Moist Mucus Membranes Neck: Trachea midline, Supple Chest/axilla: Normal chest wall appearance and motion. Cardiovascular: Regular rate and rhythm. No edema appreciated Respiratory: Normal respirations, no respiratory distress appreciated Abdomen/GI: Non distended Back: Normal ROM 14:27 Skin: Swelling noted to the left lateral rest, area is fluctuant, tender to palpation, induration appreciated. 14:27 Neuro: Orientation: is normal, Mentation: is normal, Memory: is normal. 14:27 Psych: Behavior/mood is pleasant, cooperative. Vital Signs: 15:34 Pulse 84; Resp 19; Temp 98.0(O); Pulse Ox 99% on R/A; Weight 77.11 kg; Height 5 ft. 4 ss in. (162.56 cm); Pain 9/10; 15:34 Body Mass Index 29.18 (77.11 kg, 162.56 cm) ss MDM: 14:27 Patient medically screened. [facility] 16:48 Data reviewed: vital signs, nurses notes. Counseling: I had a detailed discussion with [facility] the patient and/or guardian regarding: to return to the emergency department if symptoms worsen or persist or if there are any questions or concerns that arise at home. ED course: Patient eloped from the ED prior to final disposition. 10/09 14:28 Order name: Basic Metabolic Panel [facility] 10/09 14:28 Order name: CBC with Diff; Complete Time: 16:50 [facility] 10/09 14:28 Order name: LFT's [facility] 10/09 14:28 Order name: Magnesium [facility] 10/09 14:28 Order name: NT PRO-BNP [facility] 10/09 14:28 Order name: PT-INR; Complete Time: 16:50 [facility] 10/09 14:28 Order name: Troponin HS [facility] 10/09 14:28 Order name: XRAY Chest (1 view); Complete Time: 16:20 [facility] 10/09 14:28 Order name: Cardiac monitoring [facility] 10/09 14:28 Order name: EKG - Nurse/Tech [facility] 10/09 14:28 Order name: D-Dimer; Complete Time: 16:50 [facility] 10/09 14:28 Order name: Blood Culture Adult (2) [facility] 10/09 14:28 Order name: Lactate w/ 2H reflex if indic. [facility] 10/09 14:28 Order name: IV Saline Lock [facility] 10/09 14:28 Order name: Labs collected and sent [facility] 10/09 14:28 Order name: O2 Per Protocol [facility] 10/09 14:28 Order name: O2 Sat Monitoring [facility] Administered Medications: No medications were administered Disposition Summary: 10/09/22 16:50 Discharge Ordered Location: Unknown [facility] Condition: Stable jmm Diagnosis - Left Forearm Abscess jmm - Chest Pain jmm Followup: [facility] - With: Private Physician - When: 2 - 3 days - Reason: Recheck today's complaints, Continuance of care, Re-evaluation by your physician Forms: - Medication Reconciliation Form [facility] - Thank You Letter [facility] - Antibiotic Education m - Prescription Opioid Use [facility] Addendum: 10/12/2022 22:38 STAFF ATTESTATION STATEMENT: I was immediately available onsite in the emergency s d2 department for consultation in the care of this patient. I did not see or examine this patient. Roxy Masterson MD. Signatures: Dispatcher [employer] EDMS Raj Salguero PA PA jmm Smirch, Shelby, RN RN Roxy Masterson MD MD sd2
--- NOTE | 2022-10-09 16:50 | ER ---
Nurse's Notes [facility] Name: Lennie Russell Age: 46 yrs Sex: Female : 1975 Arrival Date: 10/09/2022 Time: 13:09 Bed IW1 Private MD: Diagnosis: Left Forearm Abscess;Chest Pain Presentation: 10/09 15:34 Chief complaint: Patient states: "I woke up with chest pain this morning, and when I ss looked at my arm I saw that it was swollen." Abscess noted to L wrist area. Coronavirus screen: Client denies travel out of the [place] in the last 14 days. Ebola Screen: Patient denies exposure to infectious person. Patient denies travel to an Ebola-affected area in the 21 days before illness onset. Initial Sepsis Screen: Does the patient meet any 2 criteria? No. Patient's initial sepsis screen is negative. Does the patient have a suspected source of infection? Yes: Skin breakdown/wound. Risk Assessment: Do you want to hurt yourself or someone else? Patient reports no desire to harm self or others. Onset of symptoms was October 09, 2022. 15:34 Method Of Arrival: Ambulatory ss 15:34 Acuity: KATHERINE 3 ss Historical: - Allergies: 15:36 No Known Allergies; ss - Home Meds: 15:36 None [Active]; ss - PMHx: 15:36 ventricular septal defect; ss - PSHx: 15:36 None; ss - Immunization history:: Client reports having NOT received the Covid vaccine. - Social history:: Smoking status: Patient reports the use of cigarette tobacco products, smokes one pack cigarettes per day. Assessment: 16:34 Reassessment: Pt states, "I'm leaving! I'm tired of sitting around here." ABDIRAHMAN Anthony ss notified. Vital Signs: 15:34 Pulse 84; Resp 19; Temp 98.0(O); Pulse Ox 99% on R/A; Weight 77.11 kg; Height 5 ft. 4 ss in. (162.56 cm); Pain 9/10; 15:34 Body Mass Index 29.18 (77.11 kg, 162.56 cm) ED Course: 13:09 Patient arrived in ED. am2 13:31 Raj Salguero PA is PHCP. jmm 13:31 Roxy Masterson MD is Attending Physician. jmm 15:36 Triage completed. ss 15:36 Arm band placed on left wrist. ss 15:46 XRAY Chest (1 view) In Process Unspecified. EDMS Administered Medications: No medications were administered Outcome: 16:50 Discharge ordered by . jmm 17:12 Discharged to discharged ordered by ABDIRAHMAN Anthony. Pt left prior to receiving discharge ss instructions 17:13 Patient left the ED. ss Signatures: Dispatcher [employer] EDMS Raj Salguero PA PA jmm Smirch, Shelby, RN RN Tyra Seth am2
[2022-10-09 16:56] LABS: ALT/SGPT 23 U/L (13-56); AST/SGOT 12 U/L (15-37); Albumin 3.1 g/dL (3.4-5.0); Alkaline Phosphatase 85 U/L (45-117); BUN Blood Urea Nitrogen 13 mg/dL (7-18); Bicarbonate 24 mmol/L (21-32); Bilirubin Total 0.1 mg/dL (0.2-1.0); Glomerular Filtration Rate 114 ml/min (=/>90); Glucose Level 94 mg/dL (74-106); NT PRO-BNP 241 pg/mL (<125); Potassium 4.3 mmol/L (3.5-5.1); Protein, Total 7.5 g/dL (6.4-8.2); Sodium Level 138 mmol/L (136-145); Troponin High Sensitivity 4.7 pg/mL (<58.9)
[2022-10-09 17:12] LABS: Bilirubin Direct < 0.1 mg/dL (0-0.2)
[2022-10-09 17:57] VITALS: TEMP 98; O2SAT 99
== END 2022-10-09 17:13 | disposition home or self-care (01) ==
LOC: ER 13:08
DX: R07.9 Chest pain, unspecified (principal); L02.414 Cutaneous abscess of left upper limb; F17.210 Nicotine dependence, cigarettes, uncomplicated
CPT/HCPCS: 36415; 71045; 80048; 80076; 83605; 83735; 83880; 84484; 85025; 85379; 85610; 87040; 99282

== ENCOUNTER 2023-06-28 16:53 | Emergency (ER) | payer OTHER, SELFPAY ==
[2023-06-28] MEDS ORDERED: METOCLOPRAMIDE 10 MG/2mL INJ ONE (18:02)
[2023-06-28] MEDS ORDERED: DIPHENHYDRAMINE 50 MG/ML VIAL ONE (18:02)
[2023-06-28] MEDS ORDERED: NA CHLORIDE 0.9% 1,000 ML ONE ×2 (18:02→18:55)
--- NOTE | 2023-06-28 18:31 | RAD REPORT ---
EXAM DESCRIPTION: CAINChest Single View06/28/2023 6:12 pm CLINICAL HISTORY: DYSPNEA COMPARISON: Chest Single View dated 10/09/2022; Chest Single View dated 02/27/2020; Chest Single View d ated 11/18/2019; Chest Single View dated 02/11/2017 TECHNIQUE: Portable AP view of the chest. FINDINGS: The lungs are clear. No pneumothorax or effusion. The cardiomediastinal contours are unrem arkable. Stable ossified or calcified focus adjacent to the left humeral greater tuberosity, may rela te to a remote fracture, less likely sequelae of calcific tendinitis. IMPRESSION: No acute cardiopulmonary process.
[2023-06-28 18:55] LABS: Absolute Lymphocytes (CBC) 0.6 K/uL (0.7-4.9); Hematocrit 34.5 % (36.0-45.0); Lymphocytes % 13.6 % (15.3-44.8); MCV 78.4 fL (80-100); MPV 8.1 fL (7.6-11.3); Platelets 316 thou/uL (152-406)
[2023-06-28 19:10] LABS: Albumin 3.1 g/dL (3.4-5.0); Bilirubin Total 0.1 mg/dL (0.2-1.0); Potassium 4.3 mEq/L (3.5-5.1); Protein, Total 7.6 g/dL (6.4-8.2)
[2023-06-28 19:11] LABS: Troponin High Sensitivity 5.3 pg/mL (<58.9)
[2023-06-28 21:09] LABS: Specific Gravity 1.001 (1.005-1.030)
[2023-06-28 21:10] LABS: Specific Gravity < 1.005 (1.005-1.030); Urine Bacteria <20 /HPF (<20); Urine Bilirubin NEGATIVE (Negative); Urine Blood 2+ (Negative); Urine Clarity Extremely Turbid (Clear); Urine Color Colorless (Yellow); Urine Glucose NEGATIVE (Negative); Urine Protein NEGATIVE (Negative); Urine RBC <5 /HPF (None Seen); Urine Urobilinogen Normal (Normal)
--- NOTE | 2023-06-28 21:16 | EDPHYS ---
Physician Documentation [facility] Name: Lennie Russell Age: 47 yrs Sex: Female : 1975 Arrival Date: 06/28/2023 Time: 16:53 Bed 7 Private MD: ED Physician Ottoniel Braun HPI: 06/28 20:52 This 47 yrs old Female presents to ER via Ambulatory with complaints of Abdominal Pain, rt Back Pain, Headache, Breathing Difficulty. 20:52 Patient presents to the ED with nausea, vomiting, diarrhea. Does report a mild dyspnea. rt Reports generalized abdominal pain, denies other acute complaints at this time. Symptoms are moderate severity, no other aggravating alleviating factors.. Historical: - Allergies: 17:00 No Known Allergies; ld1 - PMHx: 17:00 ventricular septal defect; ld1 - Immunization history:: Adult Immunizations. - Social history:: Smoking status: Patient reports the use of cigarette tobacco products, smokes one-half pack cigarettes per day, Patient/guardian denies using alcohol. - Family history:: not pertinent. ROS: 20:52 Constitutional: Negative for fever, chills, and weight loss, Cardiovascular: Negative rt for chest pain, palpitations, and edema, 20:52 MS/Extremity: Negative for injury and deformity, Skin: Negative for injury, rash, and discoloration, Psych: Negative for depression, anxiety, suicide ideation, homicidal ideation, and hallucinations, 20:52 Respiratory: Positive for shortness of breath, Negative for cough, 20:52 Abdomen/GI: Positive for abdominal pain, nausea, vomiting, and diarrhea, 20:52 Neuro: Positive for headache, Negative for altered mental status, Exam: 20:52 Constitutional: This is a well developed, well nourished patient who is awake, alert, rt and in no acute distress. Head/Face: Normocephalic, atraumatic. Chest/axilla: Normal chest wall appearance and motion. Nontender with no deformity. No lesions are appreciated. Cardiovascular: Regular rate and rhythm with a normal S1 and S2. No gallops, murmurs, or rubs. Normal PMI, no JVD. No pulse deficits. Respiratory: Lungs have equal breath sounds bilaterally, clear to auscultation and percussion. No rales, rhonchi or wheezes noted. No increased work of breathing, no retractions or nasal flaring. Abdomen/GI: Soft, non-tender, with normal bowel sounds. No distension or tympany. No guarding or rebound. No evidence of tenderness throughout. Skin: Warm, dry with normal turgor. Normal color with no rashes, no lesions, and no evidence of cellulitis. MS/ Extremity: Pulses equal, no cyanosis. Neurovascular intact. Full, normal range of motion. Neuro: Awake and alert, GCS 15, oriented to person, place, time, and situation. Cranial nerves II-XII grossly intact. Motor strength 5/5 in all extremities. Sensory grossly intact. Cerebellar exam normal. Normal gait. Psych: Awake, alert, with orientation to person, place and time. Behavior, mood, and affect are within normal limits. 20:52 ECG was reviewed by the Attending Physician. Vital Signs: 16:58 BP 113 / 92; Pulse 113; Resp 18; Temp 98.1(TE); Pulse Ox 100% on R/A; Weight 74.84 kg; ld1 Height 5 ft. 4 in. ; Pain 8/10; 18:40 Pulse 92; Pulse Ox 98% on R/A; aa5 18:49 BP 107 / 90; Pulse 102; Resp 18 S; Pulse Ox 100% on R/A; aa5 19:20 BP 107 / 90; Pulse 90; Resp 17 S; Pulse Ox 100% on R/A; ha1 21:02 BP 122 / 92; Pulse 86; Resp 19; Pulse Ox 100% on R/A; kd3 16:58 Body Mass Index 28.32 (74.84 kg, 162.56 cm) ld1 16:58 Pain Scale: Adult ld1 MDM: 17:15 Patient medically screened. rt 21:18 Differential diagnosis: Gastroenteritis, viral syndrome, migraine headache, electrolyte rt disturbance. Data reviewed: vital signs, nurses notes. I considered the following discharge prescriptions or medication management in the emergency department Medications were administered in the Emergency Department. See MAR. Test considered but Not performed: CT: Headache improving with treatment, patient has no abdominal tenderness multiple examinations, do not believe that CT scan or ultrasound are indicated.. Counseling: I had a detailed discussion with the patient and/or guardian regarding the historical points, exam findings, and any diagnostic results supporting the discharge/admit diagnosis, lab results, radiology results, the need for outpatient follow up, to return to the emergency department if symptoms worsen or persist or if there are any questions or concerns that arise at home. Response to treatment: the patient's symptoms have markedly improved after treatment. 06/28 17:23 Order name: CBC with Diff; Complete Time: 19:43 rt 06/28 17:23 Order name: CMP; Complete Time: 19:43 rt 06/28 17:23 Order name: Lipase; Complete Time: 19:43 rt 06/28 17:23 Order name: Test, Urine; Complete Time: 21:17 rt 06/28 17:23 Order name: Urinalysis w/ reflexes; Complete Time: 21:17 rt 06/28 17:23 Order name: Troponin HS; Complete Time: 19:43 rt 06/28 17:23 Order name: XRAY Chest (1 view); Complete Time: 18:33 rt 06/28 17:23 Order name: EKG; Complete Time: 17:24 rt 06/28 17:23 Order name: Labs collected and sent; Complete Time: 17:49 rt 06/28 17:23 Order name: Cardiac monitoring; Complete Time: 17:44 rt 06/28 17:23 Order name: EKG - Nurse/Tech; Complete Time: 17:44 rt 06/28 17:23 Order name: IV Saline Lock; Complete Time: 17:49 rt 06/28 17:23 Order name: O2 Per Protocol; Complete Time: 17:44 rt 06/28 17:23 Order name: O2 Sat Monitoring; Complete Time: 17:44 rt EC:52 Rate is 110 beats/min. Rhythm is regular, Sinus tachycardia with No ectopy. QRS [place] is rt Normal. [place] interval is normal. QRS interval is normal. QT interval is normal. No Q waves. T waves are Normal. No ST changes noted. Interpreted by me. Administered Medications: 18:34 Drug: NS 0.9% IV 1000 ml IV at 1 bolus Per protocol; 1000 mL bolus Route: IV; Rate: 1 aa5 bolus; Site: right upper arm; 18:34 Drug: metoCLOPramide IVP 10 mg IVP once; over 1 to 2 minutes Route: IVP; Site: right aa5 upper arm; 18:44 Follow up: Response: No adverse reaction aa5 18:34 Drug: diphenhydrAMINE IVP 25 mg IVP once Route: IVP; Site: right upper arm; aa5 18:44 Follow up: Response: No adverse reaction aa5 18:47 Drug: NS 0.9% IV 1000 ml IV at 1 bolus Per protocol; 1000 mL bolus Route: IV; Rate: 1 rs5 bolus; Site: Other; 21:24 Follow up: Response: No adverse reaction; IV Status: Completed infusion; IV Intake: ha1 1000ml Disposition Summary: 06/28/23 21:15 Discharge Ordered Notes: Location: Home rt Problem: new rt Symptoms: have improved rt Condition: Stable rt Diagnosis - Nausea and vomiting rt - Headache rt - Diarrhea rt Followup: rt - With: Private Physician - When: 2 - 3 days - Reason: Discharge Instructions: - Discharge Summary Sheet rt - Diarrhea, Adult rt - General Headache Without Cause rt - Nausea and Vomiting, Adult rt Forms: - Medication Reconciliation Form rt - Thank You Letter rt - Antibiotic Education rt - Prescription Opioid Use rt - Patient Portal Instructions rt - Leadership Thank You Letter rt Signatures: Dispatcher [employer] Toshia Buckner RN RN aa5 Beryl Lozano RN RN ld1 Ottoniel Braun MD MD rt Henrry Archibald RN RN rs5 Estefany Gibbs RN ha1 Corrections: (The following items were deleted from the chart) 17:49 17:23 IV Saline Lock ordered. rt em1
--- NOTE | 2023-06-28 21:16 | ER ---
Nurse's Notes [facility] Name: Lennie Russell Age: 47 yrs Sex: Female : 1975 Arrival Date: 06/28/2023 Time: 16:53 Bed 7 Private MD: Diagnosis: Nausea and vomiting;Headache;Diarrhea Presentation: 06/28 16:58 Chief complaint: Patient states: SOB, body aches, N/V/D, fever X 2-3 days. Coronavirus ld1 screen: At this time, the client does not indicate any symptoms associated with coronavirus-19. Ebola Screen: No symptoms or risks identified at this time. Initial Sepsis Screen: Does the patient meet any 2 criteria? No. Patient's initial sepsis screen is negative. Does the patient have a suspected source of infection? No. Patient's initial sepsis screen is negative. Risk Assessment: Do you want to hurt yourself or someone else? Patient reports no desire to harm self or others. Onset of symptoms was June 28, 2023. 16:58 Method Of Arrival: Ambulatory ld1 16:58 Acuity: KATHERINE 3 ld1 Triage Assessment: 17:00 General: Appears in no apparent distress. comfortable, Behavior is calm, cooperative, ld1 appropriate for age. Pain: Complains of pain in face and abdomen Pain does not radiate. Pain currently is 9 out of 10 on a pain scale. Quality of pain is described as throbbing. EENT: No signs and/or symptoms were reported regarding the EENT system. Neuro: Level of Consciousness is awake, alert, obeys commands, Oriented to person, place, time, situation. Cardiovascular: Capillary refill < 3 seconds Patient's skin is warm and dry. Respiratory: Airway is patent Respiratory effort is even, unlabored. GI: Abdomen is round non-distended. : No signs and/or symptoms were reported regarding the genitourinary system. Derm: No signs and/or symptoms reported regarding the dermatologic system. Musculoskeletal: No signs and/or symptoms reported regarding the musculoskeletal system. Historical: - Allergies: 17:00 No Known Allergies; ld1 - PMHx: 17:00 ventricular septal defect; ld1 - Immunization history:: Adult Immunizations. - Social history:: Smoking status: Patient reports the use of cigarette tobacco products, smokes one-half pack cigarettes per day, Patient/guardian denies using alcohol. - Family history:: not pertinent. Screenin:30 [facility] ED Fall Risk Assessment (Adult) History of falling in the last 3 months, aa5 including since admission No falls in past 3 months (0 pts) Confusion or Disorientation No (0 pts) Intoxicated or Sedated No (0 pts) Impaired Gait No (0 pts) Mobility Assist Device Used No (0 pt) Altered Elimination No (0 pt) Score/Fall Risk Level 0 - 2 = Low Risk Oriented to surroundings, Maintained a safe environment, Educated pt \T\ family on fall prevention, incl call for assistance when getting out of bed. Abuse screen: Denies threats or abuse. Nutritional screening: No deficits noted. Tuberculosis screening: No symptoms or risk factors identified. Assessment: 17:30 General: Appears uncomfortable, Behavior is calm, cooperative. Pain: Complains of pain aa5 in head Pain currently is 8 out of 10 on a pain scale. Quality of pain is described as aching, throbbing, Pain began 2-3 days ago. Is continuous. Neuro: Level of Consciousness is awake, alert, obeys commands, Oriented to person, place, time, situation. Cardiovascular: Heart tones S1 S2 present Rhythm is regular. Respiratory: Airway is patent Respiratory effort is even, unlabored, Respiratory pattern is regular, symmetrical, Breath sounds are clear bilaterally. GI: Abdomen is non-distended, Bowel sounds present X 4 quads. Abd is soft and non tender X 4 quads. Reports lower abdominal pain, upper abdominal pain, diarrhea, nausea, vomiting, since 2-3 days ago. : No signs and/or symptoms were reported regarding the genitourinary system. EENT: No signs and/or symptoms were reported regarding the EENT system. Derm: Skin is pink, warm \T\ dry. Musculoskeletal: Range of motion: intact in all extremities. 18:25 Reassessment: Patient is alert, oriented x 3, equal unlabored respirations, skin aa5 warm/dry/pink. 18:30 Reassessment: Extra warm blankets provided for pt's comfort. . aa5 19:45 General: Appears comfortable, Behavior is calm, cooperative. Pain: Complains of pain in ha1 abdomen Pain currently is 3 out of 10 on a pain scale. Neuro: Level of Consciousness is awake, alert, obeys commands, Oriented to person, place, time, situation. Respiratory: Airway is patent Respiratory effort is even, unlabored, Respiratory pattern is regular, symmetrical. GI: Abdomen is round non-distended, Bowel sounds present X 4 quads. Abd is soft and non tender Reports lower abdominal pain. 20:47 Reassessment: Patient and/or family updated on plan of care and expected duration. Pain ha1 level reassessed. Patient is alert, oriented x 3, equal unlabored respirations, skin warm/dry/pink. 21:22 Reassessment: Patient and/or family updated on plan of care and expected duration. Pain ha1 level reassessed. Patient is alert, oriented x 3, equal unlabored respirations, skin warm/dry/pink. Patient states feeling better. Patient states symptoms have improved. Vital Signs: 16:58 BP 113 / 92; Pulse 113; Resp 18; Temp 98.1(TE); Pulse Ox 100% on R/A; Weight 74.84 kg; ld1 Height 5 ft. 4 in. ; Pain 8/10; 18:40 Pulse 92; Pulse Ox 98% on R/A; aa5 18:49 BP 107 / 90; Pulse 102; Resp 18 S; Pulse Ox 100% on R/A; aa5 19:20 BP 107 / 90; Pulse 90; Resp 17 S; Pulse Ox 100% on R/A; ha1 21:02 BP 122 / 92; Pulse 86; Resp 19; Pulse Ox 100% on R/A; kd3 16:58 Body Mass Index 28.32 (74.84 kg, 162.56 cm) ld1 16:58 Pain Scale: Adult ld1 ED Course: 16:57 Patient arrived in ED. mg5 16:58 Ottoniel Braun MD is Attending Physician. rt 17:00 Triage completed. ld1 17:00 Arm band placed on right wrist. ld1 17:01 EKG completed in triage. Results shown to . ld1 17:10 Toshia De Jesus, RN is Primary Nurse. aa5 17:30 Patient has correct armband on for positive identification. Placed in gown. Bed in low aa5 position. Call light in reach. Side rails up X2. Client placed on continuous cardiac and pulse oximetry monitoring. NIBP monitoring applied. 18:14 XRAY Chest (1 view) In Process Unspecified. EDMS 18:25 Initial lab(s) drawn, by me, sent to lab. Inserted saline lock: 22 gauge in right upper aa5 arm, using aseptic technique. Blood collected. 19:00 Report given to KRISTY Allison and KRISTY Krishnamurthy. aa5 21:02 No provider procedures requiring assistance completed. kd3 21:08 Urinalysis w/ reflexes Sent. kd3 21:08 Test, Urine Sent. kd3 21:23 Provided Education on: follow ups and medication administration . ha1 21:23 IV discontinued, intact, bleeding controlled, No redness/swelling at site. Pressure ha1 dressing applied. Administered Medications: 18:34 Drug: NS 0.9% IV 1000 ml IV at 1 bolus Per protocol; 1000 mL bolus Route: IV; Rate: 1 aa5 bolus; Site: right upper arm; 18:34 Drug: metoCLOPramide IVP 10 mg IVP once; over 1 to 2 minutes Route: IVP; Site: right aa5 upper arm; 18:44 Follow up: Response: No adverse reaction aa5 18:34 Drug: diphenhydrAMINE IVP 25 mg IVP once Route: IVP; Site: right upper arm; aa5 18:44 Follow up: Response: No adverse reaction aa5 18:47 Drug: NS 0.9% IV 1000 ml IV at 1 bolus Per protocol; 1000 mL bolus Route: IV; Rate: 1 rs5 bolus; Site: Other; 21:24 Follow up: Response: No adverse reaction; IV Status: Completed infusion; IV Intake: ha1 1000ml Medication: 21:23 VIS not applicable for this client. ha1 Intake: 21:24 IV: 1000ml; Total: 1000ml. ha1 Outcome: 21:15 Discharge ordered by . rt 21:23 Discharged to home ambulatory, with family, ha1 21:23 Condition: stable 21:23 Discharge instructions given to patient, Instructed on discharge instructions, follow up and referral plans. medication usage, Demonstrated understanding of instructions, follow-up care, medications, Prescriptions given X 1, 21:24 Patient left the ED. ha1 Signatures: Dispatcher [employer] EDVT Toshia De Jesus RN RN aa5 Beryl Lozano RN RN [id number] Yessy Nicolas RN RN kd3 Estefany Gibbs RN RN ha1 Ottoniel Braun MD MD rt Henrry Archibald, RN RN rs5 Lisa Hilton mg5
[2023-06-28 23:40] VITALS: TEMP 98.1
[2023-06-28 23:43] VITALS: O2SAT 100
[2023-06-28 23:46] VITALS: BP 122/92
--- NOTE | 2023-06-29 17:12 | EKG ---
Test Date: 2023-06-28 Test Time: 17:01:47 Pitting Machine Operator: MAXIMILIAN MEASUREMENT RESULTS: Intervals: Rate: 110 CO: 134 QRSD: 74 QT: 328 QTc: 443 [place]: P: 88 CO: 134 QRS: 67 T: 83 INTERPRETIVE STATEMENTS: Sinus tachycardia Right atrial enlargement Nonspecific T wave abnormality Abnormal ECG Compared to ECG 02/27/2020 17:06:01 Atrial abnormality now present T-wave abnormality now present Sinus rhythm no longer present Electronically Signed On 06-29-23 17:10:55 CDT by Robinson Barger
== END 2023-06-28 21:24 | disposition home or self-care (01) ==
LOC: ER 16:53
DX: R11.2 Nausea with vomiting, unspecified (principal); R51.9 Headache, unspecified; R19.7 Diarrhea, unspecified; F17.210 Nicotine dependence, cigarettes, uncomplicated
CPT/HCPCS: 96361; 93005; 85025; 81001; 36415; 81025; 84484; 83690; 80053; 71045; 96375; 96374; 99284; J2765; J1200; J7030 ×2

== ENCOUNTER 2024-01-22 16:42 | Emergency (ER) | payer OTHER ==
--- OUTSIDE RECORDS SUMMARY | 2024-01-22 16:46 | XMS REPORT | Continuity of Care Document ---
Author Name Unknown Address [address] [facility] [address] [place] [address] [facility] Address [address] [facility] [address] [place] [address] Care Team Providers Care Mill Operator Helper Name Role Phone PCP, PATIENT DOES NOT HAVE A Primary Care Physic cornelio Unavailable Latesha Braxton LVN Attending Clinician [phone] Dao Estrada MD Attending Clinician + DAO ESTRADA Attending Clinician Unavailable MINISTERIO GROSSMAN Attending Clinician Unavailable Ministerio Grossman MD Attending Clinician + [phone] Mona Mcclelland Attending Clinician + [phone] Doctor Unassigned, Eschbach Attending Clinician U TIGRE Marshall Attending Clinician Unavailable Dao Estrada MD Admitting Clinician + DAO ESTRADA Admitting Clinician Unavailable Payers Payer Name Policy Type Policy Number Effective Date Expirati on Date Source HIM KEESHA FROM [facility] [id number] 2022 00:00:00 MEDICAID SSI PENDING PENDING 2019 00:00:00 2019 00:00:00 Problems Condition Name Condition Details Condition Category Status Onset Date Resolution Date Last Treatment Date Treating Clinician Comments Source Abscess of left hand Abscess of left hand Disease Active 10-14 00:00: 00 [facility] No known active problems No known active problems Disease [facility] Allergies, Adverse Reactions, Alerts Allergy Name Allergy Type Status Severity Reaction(s) Onset Date Inactive Date Treating Clinician Comments Source NO KNOWN ALLERGIE S Drug Class Active [facility] Social History Social Habit Start Date Stop Date Quantity Comments Source History of tobacco use Passive smoker [facility] History SDOH Social Connections Get Together [facility] History SDOH Social Connections [facility] SDOH Social Connections Membership [facility] History SDOH Social Connections Meetings [facility] Tobacco use and exposure 2022-10-15 00:00:00 2022-10-15 00:00:00 Smokeless tobacco non-user [facility] History SDOH Alcohol Frequency 2022-10-15 00:00:00 2022-10-15 00:00:00 1 [facility] History SDOH Alcohol Std Drinks 2022-10-15 00:00:00 2022-10-15 00:00:00 0 [facility] History SDOH Alcohol Binge 2022-10-15 00:00:00 2022-10-15 00:00:00 1 [facility] History SDOH Social Connections Phone 2022-10-15 00:00:00 2022-10-15 00:00:00 5 [facility] History SDOH Social Connections Living 2022-10-15 00:00:00 2022-10-15 00:00:00 4 [facility] History SDOH Physical Activity DPW 2022-10-15 00:00:00 2022-10-15 00:00:00 2 [facility] History SDOH Physical Activity MPS 2022-10-15 00:00:00 2022-10-15 00:00:00 3 [facility] History SDOH Financial 2022-10-15 00:00:00 2022-10-15 00:00:00 5 [facility] History SDOH Food Worry 2022-10-15 00:00:00 2022-10-15 00:00:00 1 [facility] History SDOH Food Scarcity 2022-10-15 00:00:00 2022-10-15 00:00:00 1 [facility] History SDOH Transport Med 2022-10-15 00:00:00 2022-10-15 00:00:00 2 [facility] History SDOH Transport Non-Med 2022-10-15 00:00:00 2022-10-15 00:00:00 2 [facility] Education 2022-10-15 00:00:00 2022-10-15 00:00:00 14 [facility] Exposure to SARS-CoV-2 (event) 2022-10-04 00:00:00 2022-10-14 19:38:00 Not sure [facility] Sex Assigned At 1975 00:00:00 1975 00:00:00 [facility] Smoking Status Start Date Stop Date Source Smokes tobacco daily 2022-10-15 00:00:00 [facility] Tobacco smoking consumption unknown [facility] Medications Ordered Medication Name Filled Medication Name Start Date Stop Date Current Medication? Ordering Clinician Indication Dosage Frequency Signature (SIG) Comments Components Source sodium hypochlorit e 0.025% (Dakin's) solution 10-17 02:00: 00 Yes Topical, BID, First dose on Sun10/16/22 at 2000, Until Discontinu ed, Routine [facility] sodium hypochlorit e 0.25% solution 10-17 00:00: 00 11-01 05:59 :00 No [id number] Apply to area(s) 3 (three) times daily for 14 days. [facility] Saline Bubble Study 10-16 21:46: 23 Yes [id number] 6mL 6 mL, Injection, SEE-INSTRU CTIONS, Starting on Sun10/16/22 at 1546, Until Discontinu ed, Routine [facility] sulfur hexafluorid e microsphr (LUMASON) injection 5 mL 10-16 21:38: 00 10-16 21:38 :00 No [id number] 5mL 5 mL, Intravenou s, ONCE, 1 dose, On Sun10/16/22 at 1600, Routine
membership assistant approving Restricted medication : BAILEE ERIC [facility] melatonin (MELATIN) tablet 3 mg 10-16 03:00: 00 Yes 3mg 3 mg, Oral, QHS, First dose on 10/15/22 at 2100, Until Discontinu ed, Routine [facility] sodium hypochlorit e (DAKINS) 0.025% topical solution 10-16 00:00: 00 Yes [id number] Apply to area(s) 2 (two) times daily. [facility] ciprofloxac in HCl (CIPRO) 250 mg tablet 10-16 00:00: 00 10-27 05:59 :00 No [id number] 250mg Take 1 tablet by mouth every 12 (twelve) hours for 10 days. [facility] HYDROcodone -acetaminop hen 5-325 mg tablet 10-16 00:00: 00 10-24 05:59 :00 No [id number] 1{tbl} Take 1 tablet by mouth every 4 (four) hours as needed for Pain (scale 7-10) for up to 7 days. Indication s: acute pain [facility] ceFEPIme (MAXIPIME) 2,000 mg in NaCl 0.9% (NS) 50 mL MINI-BAG 10-15 21:00: 00 10-22 20:59 :00 No 2000mg 2,000 mg, IV Piggyback, Q8H ABX, 21 doses, First dose on 10/15/22 at 1500, Last dose on Sun10/22/22 at 0700, Administer over 4 Hours, 50 mL
Reas on for Anti-Infec tive: Documented Infection& lt;br>Docu mented Infection Site: Skin / Soft Tissue
Duration of Therapy: 7 days [facility] HYDROmorphO ne (DILAUDID) injection 0.2 mg 10-15 18:15: 19 Yes .2mg 0.2 mg, Slow IV Push, Q5MIN PRN, 10 doses, Starting on 10/15/22 at 1215, Until Discontinu ed, Routine, Pain (scale 7-10), PACU
Us e approved by (Faculty): PACU USE -ANESTHESI A SERVICE-HY DROMORPHON E INJECTIONS [facility] FENTanyl PF (SUBLIMAZE (PF)) injection 25 mcg 10-15 18:15: 19 Yes 25ug 25 mcg, Slow IV Push, Q5MIN PRN, 4 doses, Starting on [place] 10/15/22 at 1215, Until Discontinu ed, Routine, Pain (scale 4-6), PACU [facility] ondansetron (ZOFRAN (PF)) injection 4 mg 10-15 18:15: 19 Yes 4mg 4 mg, Slow IV Push, PRN, 1 dose, Starting on [place] 10/15/22 at 1215, Until Discontinu ed, Routine, Nausea and Vomiting (N/V), PACU [facility] docusate (COLACE) capsule 100 mg 10-15 14:00: 00 Yes 100mg 100 mg, Oral, Q12H, First dose on Sun10/15/22 at 0800, Until Discontinu ed, Routine [facility] ceFEPIme (MAXIPIME) 2,000 mg in NaCl 0.9% (NS) 50 mL MINI-BAG 10-15 13:15: 00 10-15 15:43 :00 No 2000mg 2,000 mg, IV Piggyback, ONCE, 1 dose, On [place] 10/15/22 at 0715, Administer over 30 Minutes, 50 mL
Reas on for Anti-Infec tive: Documented Infection< br>Documen nimco Infection Site: Skin / Soft Tissue
Duration of Therapy: 7 days [facility] vancomycin 1,250 mg in NaCl 0.9% (NS) 250 mL VIAL-MATE IV piggyback 10-15 12:30: 00 10-22 12:29 :00 No 15mg/kg 1,250 mg (rounded from 1,156.5 mg = 15 mg/kg ?77.1 kg), IV Piggyback, Q12H ABX, 14 doses, First dose on Sun10/15/22 at 0630, Last dose on [facility] 10/21/22 at 1830, Administer over 90 Minutes, 250 mL
R rafal for Anti-Infec tive: Documented Infection< br>Documen nimco Infection Site: Skin / Soft Tissue
Duration of Therapy: 7 days [facility] diphenhydrA MINE (BENADRYL) tablet 25 mg 10-15 03:56: 12 Yes 25mg 25 mg, Oral, Q4HPRN, Starting on 10/14/22 at 2156, Until Discontinu ed, Routine, Itching [facility] HYDROcodone -acetaminop hen (NORCO 5) 5-325 mg tablet 1 tablet 10-15 03:56: 05 Yes 1{tbl} 1 tablet, Oral, Q4HPRN, Starting on 10/14/22 at 2156, Until Discontinu ed, Routine, Pain (scale 7-10) [facility] traMADoL (ULTRAM) tablet 50 mg 10-15 03:56: 01 Yes 50mg 50 mg, Oral, Q6HPRN, Starting on 10/14/22 at 2156, Until Discontinu ed, Routine, Pain (scale 4-6) [facility] methocarbam oL (ROBAXIN) tablet 500 mg 10-15 03:55: 57 Yes 500mg 500 mg, Oral, QIDPRN, Starting on 10/14/22 at 2155, Until Discontinu ed, Routine, Muscle Spasms [facility] ondansetron (ZOFRAN (PF)) injection 4 mg 10-15 03:55: 50 Yes 4mg 4 mg, Slow IV Push, Q6HPRN, Starting on 10/14/22 at 2155, Until Discontinu ed, Routine, Nausea and Vomiting (N/V) [facility] ondansetron (ZOFRAN (PF)) injection 4 mg 10-14 23:30: 00 10-14 23:33 :00 No 4mg 4 mg, Slow IV Push, ONCE, 1 dose, On 10/14/22 at 1730, TATA [facility] morpHINE (4 mg/mL) injection 4 mg 10-14 23:30: 00 10-14 23:30 :00 No 4mg 4 mg, Slow IV Push, ONCE, 1 dose, On 10/14/22 at 1730, STAT [facility] ondansetron (ZOFRAN (PF)) injection 4 mg 10-14 22:15: 00 10-14 21:14 :00 No 4mg 4 mg, Slow IV Push, ONCE, 1 dose, On 10/14/22 at 1615, TATA [facility] vancomycin 1,250 mg in NaCl 0.9% (NS) 250 mL VIAL-MATE IV piggyback 10-14 22:00: 00 10-14 23:26 :00 No 15mg/kg 1,250 mg (rounded from 1,156.5 mg = 15 mg/kg ?77.1 kg), IV Piggyback, ONCE, 1 dose, On 10/14/22 at 1600, Administer over 90 Minutes, 250 mL
Reas on for Anti-Infec tive: Documented Infection& lt;br>Docu mented Infection Site: Skin / Soft Tissue
Duration of Therapy: 7 days [facility] ampicillin- sulbactam (UNASYN) 3 g in NaCl 0.9% (NS) 100 mL MINI-BAG 10-14 21:15: 00 10-14 21:56 :39 No 3g 3 g, IV Piggyback, ONCE, 1 dose, On 10/14/22 at 1515, Administer over 30 Minutes, 100 mL
Reas on for Anti-Infec tive: Documented Infection< br>Documen nimco Infection Site: Skin / Soft Tissue
Duration of Therapy: 7 days [facility] morpHINE (4 mg/mL) injection 4 mg 10-14 21:15: 00 10-14 21:14 :00 No 4mg 4 mg, Slow IV Push, ONCE, 1 dose, On 10/14/22 at 1515, Routine [facility] clindamycin 300 mg capsule 2018-10 00:00: 00 Yes [id number] 300mg Take 1 capsule by mouth 3 (three) times daily. [facility] traMADol (ULTRAM) 50 mg tablet 2018-10 0-03 00:00: 00 Yes [id number] 50mg Take 1 tablet by mouth every 6 (six) hours as needed for Pain (scale 7-10). [facility] Vital Signs Vital Name Observation Time Observation Value Comments Colten ferris Systolic blood pressure 2022-10-17 18:07:00 114 mm[Hg] [facility] Diastolic blood pressure 2022-10-17 18:07:00 78 mm[Hg] [facility] Heart rate 2022-10-17 18:07:00 84 /min [facility] Body temperature 2022-10-17 18:07:00 35.67 Safia [facility] Oxygen saturation in Arterial blood by Pulse oximetry 2022-10-17 18:07:00 100 /min [facility] Respiratory rate 2022-10-17 10:38:00 18 /min [facility] Body height 2022-10-15 05:46:[address] [facility] Body weight 2022-10-15 05:46:[address] [facility] BMI 2022-10-15 05:46:00 29.18 kg/m2 [facility] Systolic blood pressure 2022-10-15 13:25:00 102 mm[Hg] [facility] Diastolic blood pressure 2022-10-15 13:25:00 71 mm[Hg] [facility] Heart rate 2022-10-15 13:25:00 68 /min [facility] Body temperature 2022-10-15 13:25:00 35.67 Safia [facility] Oxygen saturation in Arterial blood by Pulse oximetry 2022-10-15 13:25:00 97 /min [facility] Respiratory rate 2022-10-15 10:40:00 18 /min [facility] Body height 2022-10-15 05:46:[address] [facility] Body weight 2022-10-15 05:46:[address] [facility] BMI 2022-10-15 05:46:00 29.18 kg/m2 [facility] Systolic blood pressure 2022-10-15 00:00:00 116 mm[Hg] [facility] Diastolic blood pressure 2022-10-15 00:00:00 84 mm[Hg] [facility] Heart rate 2022-10-15 00:00:00 83 /[facility] 2022-10-15 00:00:00 14 /min [facility] Oxygen saturation in Arterial blood by Pulse oximetry 2022-10-15 00:00:00 96 /min [facility] Body temperature 2022-10-14 20:14:00 36.89 Safia [facility] Body height 2022-10-14 20:14:[address] [facility] Body weight 2022-10-14 20:14:[address] [facility] BMI 2022-10-14 20:14:00 29.18 kg/m2 [facility] Systolic blood pressure 2020-09-17 00:40:00 119 mm[Hg] [facility] Diastolic blood pressure 2020-09-17 00:40:00 90 mm[Hg] [facility] Heart rate 2020-09-17 00:40:00 107 /min [facility] Body temperature 2020-09-17 00:40:00 36.94 Safia [facility] Respiratory rate 2020-09-17 00:40:00 16 /min [facility] Body height 2020-09-17 00:40:[address] [facility] Body weight 2020-09-17 00:40:[address] [facility] BMI 2020-09-17 00:40:00 24.89 kg/m2 [facility] Oxygen saturation in Arterial blood by Pulse oximetry 2020-09-17 00:40:00 99 /min [facility] Procedures Procedure Date / Time Performed Performing Clinician Source VANCOMYCIN TROUGH 2022-10-17 02:21:00 Erika Barajas [facility] TRANSTHORACIC ECHO (TTE) COMPLETE W/ CONTRAST 2022-10-16 21:40:00 Perfecto Alfonso [facility] HAND DEBRIDEMENT 2022-10-15 16:59:00 [facility] 2022-10-15 16:59:00 Dao Estrada [facility] PREALBUMIN, SERUM 2022-10-15 14:47:00 Bradley [facility] TEST, SERUM 2022-10-15 14:47:00 BlackSonia [facility] PREALBUMIN, SERUM 2022-10-15 14:47:00 Bradley [facility] TEST, SERUM 2022-10-15 14:47:00 BlackSonia [facility] PROTHROMBIN TIME / INR 2022-10-15 04:31:00 Niya Altamirano [facility] ACTIVATED PARTIAL THRMPLAS DARIANA 2022-10-15 04:31:00 Janeen Altamirano [facility] PROTHROMBIN TIME / INR 2022-10-15 04:31:00 BlackNiya [facility] ACTIVATED PARTIAL THRMPLAS DARIANA 2022-10-15 04:31:00 Janeen Altamirano [facility] XR HAND 3+ VW LEFT 2022-10-14 21:32:32 Ministerio Grossman [facility] XR WRIST 3+ VW LEFT 2022-10-14 21:32:32 Ministerio Grossman [facility] COMP. METABOLIC PANEL ([id number]) 2022-10-14 21:12:00 Ministerio Grossman [facility] CBC WITH DIFF 2022-10-14 21:12:00 Ministerio Grossman [facility] ASPIRATE OR ABSCESS CULTURE(AEROBIC/ANAEROBI C) 2022-10-14 21:12:00 Ministerio Grossman [facility] CONSENT/REFUSAL FOR DIAGNOSIS AND TREATMENT 2022-10-14 20:05:33 Doctor Unassigned, Eschbach [facility] NOTICE OF PRIVACY PRACTICES 2020-09-17 00:32:07 Doctor Unassigned, Eschbach [facility] CONSENT/REFUSAL FOR DIAGNOSIS AND TREATMENT 2020-09-17 00:31:51 Doctor Unassigned, Eschbach [facility] Encounters Start Date/Time End Date/Time Encounter Type Admission Type Attending [facility] Facility Care Department Encounter ID Source 2022-10-24 00:00:00 2022-10-24 00:00:00 Transition of Care Latesha Braxton [id number] 350.1.13.10 [id number] [id number] [facility] 2022-10-18 00:00:00 2022-10-18 00:00:00 Transition of Care Latesha Braxton [id number] 350.1.13.10 [id number] [id number] [facility] 2022-10-14 19:37:00 2022-10-17 15:39:00 Hospital Encounter Estrada [facility] [id number] 350.1.13.10 [id number] [id number] [facility] 2022-10-14 19:37:00 2022-10-17 15:39:00 Outpatient X ESTRADADAO PAULSON [facility] SOR [id number] [facility] 2022-10-15 09:45:00 2022-10-15 11:23:[facility] [id number] 350.1.13.10 4.2.7.2.686 [id number] [facility] 2022-10-14 14:16:00 2022-10-14 18:43:00 Emergency X MINISTERIO GROSSMAN [facility] ERT [id number] [facility] 2022-10-14 14:16:00 2022-10-14 18:43:00 Emergency Ministerio Grossman [facility] [id number] 350.1.13.10 4.2.7.2.686 [id number] [facility] 2020-09-16 18:48:00 2020-09-16 20:11:00 Emergency Mona Pascual [facility] [id number] 350.1.13.10 4.2.7.2.686 [id number] [facility] 2020-09-16 18:33:00 2020-09-16 18:33:00 Emergency X [facility] ERT [id number] [facility] 2020-09-16 00:00:00 2020-09-16 00:00:00 Orders Only Doctor Unassigned, Eschbach [facility] [id number] 350.1.13.10 4.2.7.2.686 [id number] [facility] 2019-07-09 21:52:45 2019-07-10 00:31:00 Emergency X TIGRE FAGAN [facility] ERT [id number] [facility] Results Test Description Test Time Test Comments Results Result Co mments Source [facility]2022-10-17 01:15:31* Test Item Value Reference Range Interpretation Comme nts Height (test code = 2561305613) in Weight (test code = 0436089018) lbs Systolic BP (test code = 9857795406) mmHg Diastolic BP (test code = 0017734832) mmHg Heart Rate (test code = 1279164743) bpm BSA (test code = 2482512092) 1.83 m2 Ao root diam (test code = 6954464804) 3.10 cm Aortic root (test code = 8142183722) 3.1 cm Ao root annulus (test code = 9028877165) 3.1 cm LA size (test code = 9125632157) 3.0 cm LVOT diameter (test code = 4126368153) 2.12 cm LVOT area (test code = 7915596653) 3.50 cm2 MV Prop V (test code = 8639874559) 85.00 cm/s MV Peak E Adalberto (test code = 6343963130) 89.1 cm/s MV Peak A Adalberto (test code = 2215290085) 57.4 cm/s E/A ratio (test code = 5554655474) ratio E wave decelartion time (test code = 1814445538) 0.15 s LAV(MOD-sp4) (test code = 0061079919) 35.70 mL LVOT stroke volume (test code = 6546997833) 74.10 cm3 LVOT peak adalberto (test code = 7045671246) 122.5 cm/s LVOT mn grad (test code = 6388899366) mmHg AV LVOT peak gradient (test code = 4521221269) mmHg LVOT peak VTI (test code = 2435982855) 20.9 cm LV V1 mean (test code = 8657686048) 74.10 cm/s Tapse (test code = 5956723822) 2.07 cm LA Volume Index (BP) (test code = 1817238717) 20.3 mL/m2 LA volume (BP) (test code = 1201059594) 37.0 mL LAV(MOD-sp2) (test code = 6335472296) 32.10 mL LVIDS (test code = 5561343520) 2.90 cm Left Ventricular End Systolic Volume by Teichholz Method (test code = 9770900) 31.2 mL EF(Teich) (test code = 2957783432) 53.60 % LVIDD (test code = 1587704347) 3.90 cm Left Ventricular End Diastolic Volume by Teichholz Method (test code = 0346868) 67.2 mL IVS (test code = 8181926170) 0.82 cm FS (test code = 7504626234) 27 % EF - 2D (test code = 29451897) 53.60 % Interventricular Septum Diastolic Thickness by 2D (test code = 9233755) 0.82 cm LVPWD (test code = 0046958228) 0.77 cm PW (test code = 5746417764) 0.77 cm 0.6-1.1 Radiology Study observation (narrative) (test code = 21858-3) DOANLD (test code = DONALD) ?Left?Ventricle: Left ventricle size is normal. Normal wall thickness. Normal wall motion. Normal systolic function with a visually estimated EF of 60 - 65%. Normal diastolic function. ?Right?Ventricle: Right ventricle size is normal. Normal systolic function. ?Tricuspid?Valve: Insufficient tricuspid regurgitation jet to estimate RVSP.Trace transvalvular regurgitation. RA pressure is 5-10 mmHg. ?Left?Atrium: PFO present with a right to left shunt viewable by saline contrast. Trores Sheikh MD Left VentricleLeft ventricle size is normal. Normal wall thickness. Normal wall motion. Normal systolic function with a visually estimated EF of 60 - 65%. Normal diastolic function.Right VentricleRight ventricle size is normal. Normal systolic function.Left AtriumLeft atrium size is normal. PFO present with a right to left shunt viewable by saline contrast.Right AtriumRight atrium size is normal.IVC/SVCIVC diameter is less than or equal to 21 mm and decreases less than 50% during inspiration; therefore the estimated right atrial pressure is intermediate (~8 mmHg).Mitral ValveMitral valve structure is normal.Tricuspid ValveTricuspid valve structure is normal. Insufficient tricuspid regurgitation jet to estimate RVSP.Trace transvalvular regurgitation. RA pressure is 5-10 mmHg.Aortic ValveAortic valve structure is normal.Pulmonic ValveNot well visualized.Ascending AortaNormal sized annulus and sinus of Valsalva.PericardiumT he pericardium is normal. No pericardial effusion.Study DetailsA complete echocardiogram was performed using 2D, color flow Doppler and spectral Doppler. The apical, parasternal and subcostal views were obtained. 5 mL of Lumason ultrasound enhancing agent used and saline contrast was performed. [facility] 15[facility]49:31* Test Item Value Reference Range Interpretation Comme nts PALB (test code = 04293-0) 12.9 mg/dL 18.0-45.0 L Lab Interpretation (test cod e = 62172-6) Abnormal [facility] 15:49:31* Test Item Value Reference Range Interpretation Comme nts PALB (test code = 36317-0) 12.9 mg/dL 18.0-45.0 L Lab Interpretation (test cod e = 76252-0) Abnormal [facility], [id number] 15:37:56* Test Item Value Reference Range Interpretation Comme nts PREG SERUM (test code = 4671376840) Negative DONALD (test code = DONALD) Less than 10 IU/L. ?If low titer or ectopic is suspected, resubmit specimen in 48-72 hours. [facility], [id number] 15:37:56* Test Item Value Reference Range Interpretation Comme nts PREG SERUM (test code = 9992204930) Negative DONALD (test code = DONALD) Less than 10 IU/L. ?If low titer or ectopic is suspected, resubmit specimen in 48-72 hours. [facility]. METABOLIC PANEL (75694)2022-10-14 21:57:50* Test Item Value Reference Range Interpretation Comme nts NA (test code = 5910562420) 140 mmol/L 135-145 K (test code = 3664628884) 4.4 mmol/L 3.5-5.0 CL (test code = 6849545268) 104 mmol/L 98-108 CO2 TOTAL (test code = 4218669114) 28 mmol/L 23-31 AGAP (test code = 1500208592) 2-16 BUN (test code = 0039749525) 18 mg/dL 7-23 GLUCOSE (test code = 6526285769) 102 mg/dL 70-110 CREATININE (test code = 4294902413) 0.59 mg/dL 0.50-1.04 TOTAL BILI (test code = 2983174636) 0.3 mg/dL 0.1-1.1 CALCIUM (test code = 9971869031) 9.0 mg/dL 8.6-10.6 T PROTEIN (test code = 0660295903) 7.7 g/dL 6.3-8.2 ALBUMIN (test code = 1885305613) 4.1 g/dL 3.5-5.0 ALK PHOS (test code = 1832248596) 97 U/L 34-122 ALTv (test code = 1742-6) 24 U/L 5-35 AST(SGOT) (test code = 0897780125) 28 U/L 13-40 eGFR (test code = 1018030100) mL/min/1.73m2 DONALD (test code = DONALD) Association of Glomerular Filtration Rate (GFR) and Staging of Kidney Disease* + + +- +| GFR (mL/min/1.73 m2) ?| With Kidney Damage ?| ?Without Kidney Damage+ ------+ ----+ ------+| ?>90 ?| ?Stage one ?| ? Normal ?+ -+ + -+| ?60-89 ?| ?Stage two ?| ? Decreased GFR ? + + +- +| ?30-59 ?| ?Stage three ?| ? Stage three ? + + +- +| ?15-29 ?| ?Stage four ? | ? Stage four ?+ -+ + -+| ?<15 (or dialysis) ? ?| ?Stage five ? | ? Stage five ?+ -+ + -+ *Each stage assumes the associated GFR level has been in effect for at least three months. ?Stages 1 to 5, with or without kidney disease, indicate chronic kidney disease. Notes: Determination of stages one and two (with eGFR >59mL/min/1.73 m2) requires estimation of kidney damage for at least three months as defined by structural or functional abnormalities of the kidney, manifested by either:Pathological abnormalities or Markers of kidney damage (including abnormalities in the composition of the blood or urine or abnormalities in imaging tests). [facility] WITH [id number] 21:37:10* Test Item Value Reference Range Interpretation Comme nts WBC (test code = 6690-2) See_Comment [KokoChi] The system which generated this result transmitted reference range: 4.30 - 11.10 10*3/?L. The reference range was not used to interpret this result as normal/abnormal. RBC (test code = 789-8) See_Comment [[employer]okoChi] The system which generated this result transmitted reference range: 3.93 - 5.25 10*6/?L. The reference range was not used to interpret this result as normal/abnormal. HGB (test code = 718-7) 11.0 g/dL 11.6-15.0 L HCT (test code = 4544-3) 36.1 % 35.7-45.2 MCV (test code = 787-2) 82.0 fL 80.6-95.5 MCH (test code = 785-6) 25.0 pg 25.9-32.8 L MCHC (test code = 786-4) 30.5 g/dL 31.6-35.1 L RDW-SD (test code = 63595-6) 50.4 fL 39.0-49.9 H RDW-CV (test code = 788-0) 16.8 % 12.0-15.5 H PLT (test code = 777-3) See_Comment H [Automated messa ge] The system which generated this result transmitted reference range: 166 - 358 10*3/?L. The reference range was not used to interpret this result as normal/abnormal. MPV (test code = 83896-3) 10.5 fL 9.5-12.9 NRBC/100 WBC (test code = 2332494010) See_Comment [Automated me ssage] The system which generated this result transmitted reference range: 0.0 - 10.0 /100 WBCs. The reference range was not used to interpret this result as normal/abnormal. NRBC x10^3 (test code = 7506964945) See_Comment [Automated messa ge] The system which generated this result transmitted reference range: 10*3/?L. The reference range was not used to interpret this result as normal/abnormal. GRAN MAT (NEUT) % (test code = 770-8) 57.9 % IMM GRAN % (test code = 9308000821) 0.40 % LYMPH % (test code = 736-9) 27.9 % MONO % (test code = 5905-5) 7.3 % EOS % (test code = 713-8) 5.8 % BASO % (test code = 706-2) 0.7 % GRAN MAT x10^3(ANC) (test code = 2053922786) 4.10 10*3/uL 1.88-7.09 IMM GRAN x10^3 (test code = 9525464926) 0.03 10*3/uL 0.00-0.06 LYMPH x10^3 (test code = 731-0) 1.98 10*3/uL 1.32-3.29 MONO x10^3 (test code = 742-7) 0.52 10*3/uL 0.33-0.92 EOS x10^3 (test code = 711-2) 0.41 10*3/uL 0.03-0.39 H BASO x10^3 (test code = 704-7) 0.05 10*3/uL 0.01-0.07 Lab Interpretation (test code = 60929-4) Abnormal [facility]"
[2024-01-22] MEDS ORDERED: methocarbamoL 750 MG TAB ONE (16:54)
[2024-01-22] MEDS ORDERED: KETOROLAC 30 MG/ML INJ ONE (16:54)
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
[2024-01-22 23:11] VITALS: BP 125/81; O2SAT 99
== END 2024-01-22 18:29 | disposition home or self-care (01) ==
LOC: ER 16:42
DX: M25.512 Pain in left shoulder (principal); R51.9 Headache, unspecified; V49.49XA Driver injured in collision with other motor vehicles in traffic accident, initial encounter; F17.210 Nicotine dependence, cigarettes, uncomplicated
CPT/HCPCS: 70450; 71045; 72125; 96372; 99284

== ENCOUNTER 2024-12-27 19:48 | Emergency (ER) | payer OTHER, SELFPAY ==
--- OUTSIDE RECORDS SUMMARY | 2024-12-27 19:52 | XMS REPORT | Continuity of Care Document ---
Author Name Unknown Address [address] [place] [address] [facility] Address [address] [place] [address] Care Team Providers Care Valve Mechanic Name Role Phone PCP, PATIENT DOES NOT HAVE A Primary Care Physic cornelio Unavailable FARHAN SAXENA Attending Clinician Unavailable FARHAN SAXENA Attending Clinician Unavailable Farhan Saxena DO Attending Clinician [phone] Latesha Braxton LVN Attending Clinician + [phone] Dao Estrada MD Attending Clinician + DAO ESTRADA Attending Clinician Unavailable MINISTERIO GROSSMAN Attending Clinician Unavailable Ministerio Grossman MD Attending Clinician + Mona Mcclelland Attending Clinician [phone] Doctor Unassigned, [place] Attending Clinician U TIGRE Marshall Attending Clinician Unavailable FARHAN SAXENA Admitting Clinician Unavailable Dao Estrada MD Admitting Clinician + DAO ESTRADA Admitting Clinician Unavailable Payers Payer Name Policy Type Policy Number Effective Date Expirati on Date Source HIM KEESHA FROM [facility] [id number] 2022 00:00:00 MEDICAID SSI PENDING PENDING 2019 00:00:00 2019 00:00:00 Problems Condition Name Condition Details Condition Category Status Onset Date Resolution Date Last Treatment Date Treating Clinician Comments Source Abscess of left hand Abscess of left hand Disease Active 10-14 00:00: 00 [facility] No known active problems No known active problems Disease [facility] Allergies, Adverse Reactions, Alerts Allergy Name Allergy Type Status Severity Reaction(s) Onset Date Inactive Date Treating Clinician Comments Source NO KNOWN ALLERGIE S Drug Class Active [facility] Social History Social Habit Start Date Stop Date Quantity Comments Source [facility] of tobacco use Cigarette Smoker [facility] History SDOH Social Connections Get Together [facility] History SDOH Social Connections Restorationism [facility] History SDOH Social Connections Membership [facility] History SDOH Social Connections Meetings [facility] History of Social function 2022-10-15 00:00:00 2022-10-15 00:00:00 [facility] Tobacco use and exposure 2022-10-15 00:00:00 2022-10-15 00:00:00 Smokeless tobacco non-user [facility] History SDOH Alcohol Frequency 2022-10-15 00:00:00 2022-10-15 00:00:00 1 [facility] History SDOH Alcohol Std Drinks 2022-10-15 00:00:00 2022-10-15 00:00:00 0 [facility] History SDOH Alcohol Binge 2022-10-15 00:00:00 2022-10-15 00:00:00 1 [facility] History SDOH Social Connections Phone 2022-10-15 00:00:00 2022-10-15 00:00:00 5 [facility] History SDOH Social Connections Living 2022-10-15 00:00:00 2022-10-15 00:00:00 4 [facility] History SDOH Physical Activity DPW 2022-10-15 00:00:00 2022-10-15 00:00:00 2 [facility] History SDOH Physical Activity MPS 2022-10-15 00:00:00 2022-10-15 00:00:00 3 [facility] History SDOH Financial 2022-10-15 00:00:00 2022-10-15 00:00:00 5 [facility] History SDOH Food Worry 2022-10-15 00:00:00 2022-10-15 00:00:00 1 [facility] History SDOH Food Scarcity 2022-10-15 00:00:00 2022-10-15 00:00:00 1 [facility] History SDOH Transport Med 2022-10-15 00:00:00 2022-10-15 00:00:00 2 [facility] History SDOH Transport Non-Med 2022-10-15 00:00:00 2022-10-15 00:00:00 2 [facility] Education 2022-10-15 00:00:00 2022-10-15 00:00:00 14 [facility] Exposure to SARS-CoV-2 (event) 2022-10-04 00:00:00 2022-10-14 19:38:00 Not sure [facility] Sex assigned at 1975 00:00:00 1975 00:00:00 [facility] Smoking Status Start Date Stop Date Source Smokes tobacco daily 2022-10-15 00:00:00 [facility] Tobacco smoking consumption unknown [facility] Medications Ordered Medication Name Filled Medication Name Start Date Stop Date Current Medication? Ordering Clinician Indication Dosage Frequency Signature (SIG) Comments Components Source HYDROcodone -acetaminop hen (NORCO) 10-325 mg tablet 1 tablet 2023-10 20:00: 00 08-22 19:05 :00 No 1{tbl} 1 tablet, Oral, ONCE, 1 dose, On Sun08/22/24 at 1400, Routine [facility] naproxen sodium 550 mg tablet 2023-10 00:00: 00 Yes [id number] 103 550mg Take 1 tablet by mouth in the morning and 1 tablet in the evening. Take with meals. [facility] methylPREDN ISolone 4 mg tablets 2023-10 00:00: 00 Yes [id number] 103 Take by mouth SEE-INSTRU CTIONS. follow package directions [facility] methocarbam oL 500 mg tablet 2023-10 00:00: 00 08-28 05:59 :00 No [id number] 103 500mg Take 1 tablet by mouth in the morning and 1 tablet at noon and 1 tablet in the evening. Do all this for 5 days. [facility] sodium hypochlorit e 0.025% (Dakin's) solution 10-17 02:00: 00 Yes Topical, BID, First dose on Sun10/16/22 at 2000, Until Discontinu ed, Routine [facility] sodium hypochlorit e 0.25% solution 10-17 00:00: 00 11-01 05:59 :00 No [id number] Apply to area(s) 3 (three) times daily for 14 days. [facility] Saline Bubble Study 10-16 21:46: 23 Yes [id number] 6mL 6 mL, Injection, SEE-INSTRU CTIONS, Starting on Sun10/16/22 at 1546, Until Discontinu ed, Routine [facility] sulfur hexafluorid e microsphr (LUMASON) injection 5 mL 10-16 21:38: 00 10-16 21:38 :00 No [id number] 5mL 5 mL, Intravenou s, ONCE, 1 dose, On Sun10/16/22 at 1600, Routine
membership administrator approving Restricted medication : BAILEE ERIC [facility] melatonin (MELATIN) tablet 3 mg 10-16 03:00: 00 Yes 3mg 3 mg, Oral, QHS, First dose on Sun10/15/22 at 2100, Until Discontinu ed, Routine [facility] sodium hypochlorit e (DAKINS) 0.025% topical solution 10-16 00:00: 00 Yes [id number] Apply to area(s) 2 (two) times daily. [facility] ciprofloxac in HCl (CIPRO) 250 mg tablet 10-16 00:00: 00 10-27 05:59 :00 No [id number] 250mg Take 1 tablet by mouth every 12 (twelve) hours for 10 days. [facility] HYDROcodone -acetaminop hen 5-325 mg tablet 10-16 00:00: 00 10-24 05:59 :00 No [id number] 1{tbl} Take 1 tablet by mouth every 4 (four) hours as needed for Pain (scale 7-10) for up to 7 days. Indication s: acute pain [facility] ceFEPIme (MAXIPIME) 2,000 mg in NaCl 0.9% (NS) 50 mL MINI-BAG 10-15 21:00: 00 10-22 20:59 :00 No 2000mg 2,000 mg, IV Piggyback, Q8H ABX, 21 doses, First dose on Sun10/15/22 at 1500, Last dose on Sun10/22/22 at 0700, Administer over 4 Hours, 50 mL
Reas on for Anti-Infec tive: Documented Infection& lt;br>Docu mented Infection Site: Skin / Soft Tissue
Duration of Therapy: 7 days [facility] HYDROmorphO ne (DILAUDID) injection 0.2 mg 10-15 18:15: 19 Yes .2mg 0.2 mg, Slow IV Push, Q5MIN PRN, 10 doses, Starting on Sun10/15/22 at 1215, Until Discontinu ed, Routine, Pain (scale 7-10), PACU
Us e approved by (Faculty): PACU USE -ANESTHESI A SERVICE-HY DROMORPHON E INJECTIONS [facility] FENTanyl PF (SUBLIMAZE (PF)) injection 25 mcg 10-15 18:15: 19 Yes 25ug 25 mcg, Slow IV Push, Q5MIN PRN, 4 doses, Starting on 10/15/22 at 1215, Until Discontinu ed, Routine, Pain (scale 4-6), PACU [facility] ondansetron (ZOFRAN (PF)) injection 4 mg 10-15 18:15: 19 Yes 4mg 4 mg, Slow IV Push, PRN, 1 dose, Starting on 10/15/22 at 1215, Until Discontinu ed, Routine, Nausea and Vomiting (N/V), PACU [facility] docusate (COLACE) capsule 100 mg 10-15 14:00: 00 Yes 100mg 100 mg, Oral, Q12H, First dose on 10/15/22 at 0800, Until Discontinu ed, Routine [facility] ceFEPIme (MAXIPIME) 2,000 mg in NaCl 0.9% (NS) 50 mL MINI-BAG 10-15 13:15: 00 10-15 15:43 :00 No 2000mg 2,000 mg, IV Piggyback, ONCE, 1 dose, On Sun10/15/22 at 0715, Administer over 30 Minutes, 50 mL
Reas on for Anti-Infec tive: Documented Infection< br>Documen nimco Infection Site: Skin / Soft Tissue
Duration of Therapy: 7 days [facility] vancomycin 1,250 mg in NaCl 0.9% (NS) 250 mL VIAL-MATE IV piggyback 10-15 12:30: 00 10-22 12:29 :00 No 15mg/kg 1,250 mg (rounded from 1,156.5 mg = 15 mg/kg ?77.1 kg), IV Piggyback, Q12H ABX, 14 doses, First dose on 10/15/22 at 0630, Last dose on 10/21/22 at 1830, Administer over 90 Minutes, 250 mL
R rafal for Anti-Infec tive: Documented Infection< br>Documen nimco Infection Site: Skin / Soft Tissue
Duration of Therapy: 7 days [facility] diphenhydrA MINE (BENADRYL) tablet 25 mg 10-15 03:56: 12 Yes 25mg 25 mg, Oral, Q4HPRN, Starting on 10/14/22 at 2156, Until Discontinu ed, Routine, Itching [facility] HYDROcodone -acetaminop hen (NORCO 5) 5-325 mg tablet 1 tablet 10-15 03:56: 05 Yes 1{tbl} 1 tablet, Oral, Q4HPRN, Starting on 10/14/22 at 2156, Until Discontinu ed, Routine, Pain (scale 7-10) [facility] traMADoL (ULTRAM) tablet 50 mg 10-15 03:56: 01 Yes 50mg 50 mg, Oral, Q6HPRN, Starting on 10/14/22 at 2156, Until Discontinu ed, Routine, Pain (scale 4-6) [facility] methocarbam oL (ROBAXIN) tablet 500 mg 10-15 03:55: 57 Yes 500mg 500 mg, Oral, QIDPRN, Starting on 10/14/22 at 2155, Until Discontinu ed, Routine, Muscle Spasms [facility] ondansetron (ZOFRAN (PF)) injection 4 mg 10-15 03:55: 50 Yes 4mg 4 mg, Slow IV Push, Q6HPRN, Starting on 10/14/22 at 2155, Until Discontinu ed, Routine, Nausea and Vomiting (N/V) [facility] ondansetron (ZOFRAN (PF)) injection 4 mg 10-14 23:30: 00 10-14 23:33 :00 No 4mg 4 mg, Slow IV Push, ONCE, 1 dose, On 10/14/22 at 1730, TATA [facility] morpHINE (4 mg/mL) injection 4 mg 10-14 23:30: 00 10-14 23:30 :00 No 4mg 4 mg, Slow IV Push, ONCE, 1 dose, On 10/14/22 at 1730, STAT [facility] ondansetron (ZOFRAN (PF)) injection 4 mg 10-14 22:15: 00 10-14 21:14 :00 No 4mg 4 mg, Slow IV Push, ONCE, 1 dose, On 10/14/22 at 1615, TATA [facility] vancomycin 1,250 mg in NaCl 0.9% (NS) [...] Soft Tissue
Duration of Therapy: 7 days [facility] ampicillin- sulbactam (UNASYN) 3 g in NaCl 0.9% (NS) 100 mL MINI-BAG 10-14 21:15: 00 10-14 21:56 :39 No 3g 3 g, IV Piggyback, ONCE, 1 dose, On 10/14/22 at 1515, Administer over 30 Minutes, 100 mL
Reas on for Anti-Infec tive: Documented Infection< br>Documen nimco Infection Site: Skin / Soft Tissue
Duration of Therapy: 7 days [facility] morpHINE (4 mg/mL) injection 4 mg 10-14 21:15: 00 10-14 21:14 :00 No 4mg 4 mg, Slow IV Push, ONCE, 1 dose, On 10/14/22 at 1515, Routine [facility] clindamycin 300 mg capsule 2018-10 00:00: 00 Yes [id number] 300mg Take 1 capsule by mouth 3 (three) times daily. [facility] traMADol (ULTRAM) 50 mg tablet 2018-10 00:00: 00 Yes [id number] 50mg Take 1 tablet by mouth every 6 (six) hours as needed for Pain (scale 7-10). [facility] Immunizations Ordered Immunization Name Filled Immunization Name Date Status Comments Source TD Pres-Free 2022-10-15 00:00:00 Completed [facility] TD Pres-Free 2022-10-15 00:00:00 Completed [facility] TD Pres-Free 2022-10-15 00:00:00 Completed [facility] TD Pres-Free 2022-10-15 00:00:00 Completed [facility] TD Pres-Free 2022-10-15 00:00:00 Completed [facility] Vital Signs Vital Name Observation Time Observation Value Comments S josy Systolic blood pressure 2024-08-22 20:19:57 115 mm[Hg] [facility] Diastolic blood pressure 2024-08-22 20:19:57 78 mm[Hg] [facility] Heart rate 2024-08-22 20:19:57 64 /min [facility] Respiratory rate 2024-08-22 20:19:57 17 /min [facility] Oxygen saturation in Arterial blood by Pulse oximetry 2024-08-22 20:19:57 100 /min [facility] Body temperature 2024-08-22 18:14:00 36.39 Safia [facility] Body height 2024-08-22 18:14:00 162.6 cm [facility] Body weight 2024-08-22 18:14:00 70.308 kg [facility] BMI 2024-08-22 18:14:00 26.61 kg/m2 [facility] Systolic blood pressure 2022-10-17 18:07:00 114 mm[Hg] [facility] Diastolic blood pressure 2022-10-17 18:07:00 78 mm[Hg] [facility] Heart rate 2022-10-17 18:07:00 84 /min [facility] Body temperature 2022-10-17 18:07:00 35.67 Safia [facility] Oxygen saturation in Arterial blood by Pulse oximetry 2022-10-17 18:07:00 100 /min [facility] Respiratory rate 2022-10-17 10:38:00 18 /min [facility] Body height 2022-10-15 05:46:00 162.6 cm [facility] Body weight 2022-10-15 05:46:00 77.111 kg [facility] BMI 2022-10-15 05:46:00 29.18 kg/m2 [facility] Systolic blood pressure 2022-10-15 13:25:00 102 mm[Hg] [facility] Diastolic blood pressure 2022-10-15 13:25:00 71 mm[Hg] [facility] Heart rate 2022-10-15 13:25:00 68 /min [facility] Body temperature 2022-10-15 13:25:00 35.67 Safia [facility] Oxygen saturation in Arterial blood by Pulse oximetry 2022-10-15 13:25:00 97 /min [facility] Respiratory rate 2022-10-15 10:40:00 18 /min [facility] Body height 2022-10-15 05:46:00 162.6 cm [facility] Body weight 2022-10-15 05:46:00 77.111 kg [facility] BMI 2022-10-15 05:46:00 29.18 kg/m2 [facility] Systolic blood pressure 2022-10-15 00:00:00 116 mm[Hg] [facility] Diastolic blood pressure 2022-10-15 00:00:00 84 mm[Hg] [facility] Heart rate 2022-10-15 00:00:00 83 /min [facility] Respiratory rate 2022-10-15 00:00:00 14 /min [facility] Oxygen saturation in Arterial blood by Pulse oximetry 2022-10-15 00:00:00 96 /min [facility] Body temperature 2022-10-14 20:14:00 36.89 Safia [facility] Body height 2022-10-14 20:14:00 162.6 cm [facility] Body weight 2022-10-14 20:14:00 77.111 kg [facility] BMI 2022-10-14 20:14:00 29.18 kg/m2 [facility] Systolic blood pressure 2020-09-17 00:40:00 119 mm[Hg] [facility] Diastolic blood pressure 2020-09-17 00:40:00 90 mm[Hg] [facility] Heart rate 2020-09-17 00:40:00 107 /min [facility] Body temperature 2020-09-17 00:40:00 36.94 Safia [facility] Respiratory rate 2020-09-17 00:40:00 16 /min [facility] Body height 2020-09-17 00:40:00 162.6 cm [facility] Body weight 2020-09-17 00:40:00 65.772 kg [facility] BMI 2020-09-17 00:40:00 24.89 kg/m2 [facility] Oxygen saturation in Arterial blood by Pulse oximetry 2020-09-17 00:40:00 99 /min Frederick o [facility] Procedures Procedure Date / Time Performed Performing Clinician Source TROPONIN I 2024-08-22 20:14:00 Farhan Saxena [facility] COMP. METABOLIC PANEL ([id number]) 2024-08-22 20:14:00 Singer [facility] CBC WITH DIFF 2024-08-22 20:14:00 Singer [facility] CAROTID DUPLEX BILATERAL - BY VASCULAR LAB 2024-08-22 20:06:00 Singer [facility] CT CERVICAL SPINE WO CONTRAST 2024-08-22 19:24:09 Saxena, [facility] CT MAXILLOFACIAL/MANDIBLE WO CONTRAST 2024-08-22 19:24:09 Singer [facility] CT HEAD WO CONTRAST 2024-08-22 19:24:09 Maria C Saxena [facility] XR CHEST 1 VW 2024-08-22 18:45:00 Singer [facility] VANCOMYCIN TROUGH 2022-10-17 02:21:00 Erika Barajas [facility] TRANSTHORACIC ECHO (TTE) COMPLETE W/ CONTRAST 2022-10-16 21:40:00 Perfecto Alfonso [facility] HAND DEBRIDEMENT 2022-10-15 16:59:00 Estrada, [facility] 2022-10-15 16:59:00 EstradaDao U [facility] PREALBUMIN, SERUM 2022-10-15 14:47:00 Ruthie Huerta [facility] TEST, SERUM 2022-10-15 14:47:00 Sonia Altamirano [facility] PREALBUMIN, SERUM 2022-10-15 14:47:00 Ruthie Huerat [facility] TEST, SERUM 2022-10-15 14:47:00 Sonia Altamirano [facility] PROTHROMBIN TIME / INR 2022-10-15 04:31:00 Niya Altamirano [facility] ACTIVATED PARTIAL THRMPLAS DARIANA 2022-10-15 04:31:00 Janeen Altamirano [facility] PROTHROMBIN TIME / INR 2022-10-15 04:31:00 BlackNiya [facility] ACTIVATED PARTIAL THRMPLAS DARIANA 2022-10-15 04:31:00 Adarsh Janeen [facility] XR HAND 3+ VW LEFT 2022-10-14 21:32:32 Ministerio Grossman [facility] XR WRIST 3+ VW LEFT 2022-10-14 21:32:32 Ministerio Grossman [facility] COMP. METABOLIC PANEL ([id number]) 2022-10-14 21:12:00 Ministerio Grossman [facility] CBC WITH DIFF 2022-10-14 21:12:00 Ministerio Grossman [facility] ASPIRATE OR ABSCESS CULTURE(AEROBIC/ANAEROBI C) 2022-10-14 21:12:00 Ministerio Grossman [facility] CONSENT/REFUSAL FOR DIAGNOSIS AND TREATMENT 2022-10-14 20:05:33 Doctor Unassigned, [place] [facility] NOTICE OF PRIVACY PRACTICES 2020-09-17 00:32:07 Doctor Unassigned, [place] [facility] CONSENT/REFUSAL FOR DIAGNOSIS AND TREATMENT 2020-09-17 00:31:51 Doctor Unassigned, [place] [facility] Encounters Start Date/Time End Date/Time Encounter Type Admission Type Attending [facility] Care Facility Care Department Encounter ID Source 2024-08-22 12:16:00 2024-08-22 15:59:00 Emergency X FARHAN SAXENA [facility] ERT [id number] [facility] 2024-08-22 12:16:00 2024-08-22 15:59:00 Emergency Farhan Saxena AT [facility] [id number] 350.1.13.10 4.2.7.2.686 [id number] [facility] 2022-10-24 00:00:00 2022-10-24 00:00:00 Transition of Care Latesha Braxton [id number] 350.1.13.10 4.2.7.2.686 [id number] [facility] 2022-10-18 00:00:00 2022-10-18 00:00:00 Transition of Care Latesha Braxton [id number] 350.1.13.10 4.2.7.2.686 [id number] [facility] 2022-10-14 19:37:00 2022-10-17 15:39:00 Hospital Encounter Estrada, [facility] 1.840.114 350.1.13.10 4.2.7.2.686 [id number] [facility] 2022-10-14 19:37:00 2022-10-17 15:39:00 Outpatient X ESTRADADAO PAULSON [facility] SOR [id number] [facility] 2022-10-15 09:45:00 2022-10-15 11:23:00 [id number] 350.1.13.10 4.2.7.2.686 [id number] [facility] 2022-10-14 14:16:00 2022-10-14 18:43:00 Emergency X MINISTERIO GROSSMAN [facility] ERT [id number] [facility] 2022-10-14 14:16:00 2022-10-14 18:43:00 Emergency Ministerio Grossman [facility] [id number] 350.1.13.10 4.2.7.2.686 [id number] [facility] 2020-09-16 18:48:00 2020-09-16 20:11:00 Emergency Mona Pascual [facility] [id number] 350.1.13.10 4.2.7.2.686 [id number] [facility] 2020-09-16 18:33:00 2020-09-16 18:33:[address] [facility] ERT [id number] [facility] 2020-09-16 00:00:00 2020-09-16 00:00:00 Orders Only Doctor Unassigned, [place] [facility] [id number] 350.1.13.10 4.2.7.2.686 [id number] [facility] 2019-07-09 21:52:45 2019-07-10 00:31:00 Emergency X TIGRE FAGAN [facility] ERT [id number] [facility] Results Test Description Test Time Test Comments Results Result Co mments Source [facility] ([id number])2024-08-22 21:38:32* Test Item Value Reference Range Interpretation Comme nts NA (test code = 9349814937) 138 mmol/L 135-145 K (test code = 7830488477) 4.1 mmol/L 3.5-5.0 CL (test code = 7677382445) 105 mmol/L 98-108 CO2 TOTAL (test code = 1459378289) 29 mmol/L 23-31 AGAP (test code = 7667451670) 4 2-16 BUN (test code = 5522805308) 10 mg/dL 7-23 GLUCOSE (test code = 9815876567) 112 mg/dL 70-110 H CREATININE (test code = 2160-0) 0.61 mg/dL 0.50-1.04 TOTAL BILI (test code = 3149482551) 0.1-1.1 L CALCIUM (test code = 6501200839) 9.0 mg/dL 8.6-10.6 T PROTEIN (test code = 0875591290) 7.1 g/dL 6.3-8.2 ALBUMIN (test code = 1865587980) 3.9 g/dL 3.5-5.0 ALK PHOS (test code = 3486567443) 91 U/L 34-122 ALTv (test code = 1742-6) 20 U/L 5-35 AST(SGOT) (test code = 7962724592) 43 U/L 13-40 H eGFR (test code = 62519-3) 111.8 mL/min/1.73m2 CKD-EPI eGFR (2020). Assuming creatinine has been stable day-to-day for at least three months, the eGFR indicates Category G1 (>= 90 mL/min/1.73 m2) Lab Interpretation (test code = 89731-6) Abnormal [facility] with [id number] 20:49:01* Test Item Value Reference Range Interpretation Comme nts WBC (test code = 6690-2) 7.48 4.30-11.10 RBC (test code = 789-8) 4.28 3.93-5.25 HGB (test code = 718-7) 11.6 g/dL 11.6-15.0 HCT (test code = 4544-3) 36.9 % 35.7-45.2 MCV (test code = 787-2) 86.2 fL 80.6-95.5 MCH (test code = 785-6) 27.1 pg 25.9-32.8 MCHC (test code = 786-4) 31.4 g/dL 31.6-35.1 L RDW-SD (test code = 82533-2) 42.8 fL 39.0-49.9 RDW-CV (test code = 788-0) 13.6 % 12.0-15.5 PLT (test code = 777-3) 346 166-358 MPV (test code = 44104-2) 10.5 fL 9.5-12.9 NRBC/100 WBC (test code = 3729611524) 0.0 0.0-10.0 NRBC x10^3 (test code = 7611009513) See_Comment [Automated messa ge] The system which generated this result transmitted reference range: 10*3/?L. The reference range was not used to interpret this result as normal/abnormal. GRAN MAT (NEUT) % (test code = 770-8) 62.7 % IMM GRAN % (test code = 0986954623) 0.30 % LYMPH % (test code = 736-9) 26.6 % MONO % (test code = 5905-5) 6.7 % EOS % (test code = 713-8) 3.3 % BASO % (test code = 706-2) 0.4 % GRAN MAT x10^3(ANC) (test code = 7872396980) 4.69 10*3/uL 1.88-7.09 IMM GRAN x10^3 (test code = 1966220933) 0.00-0.06 LYMPH x10^3 (test code = 731-0) 1.99 10*3/uL 1.32-3.29 MONO x10^3 (test code = 742-7) 0.50 10*3/uL 0.33-0.92 EOS x10^3 (test code = 711-2) 0.25 10*3/uL 0.03-0.39 BASO x10^3 (test code = 704-7) 0.03 10*3/uL 0.01-0.07 Lab Interpretation (test code = 47393-8) [id number] 19:39:57CT HEAD WO CONTRAST, CT MAXILLOFACIAL/MANDIBLE WO CONTRAST, CT CERVICALSPINE WO CONTRAST HISTORY: Head trauma, moderate-severe COMPARISON: None. TECHNIQUE: Nonenhanced CT scan of the head,face and cervical spine weredone in multiple dimensions. FINDINGS: HEAD: The ventricles and cerebral sulci are normal in caliber and configuration.No hydrocephalus, midline shift or pathological extra-axial fluid collection is present. The basal cisterns are unremarkable. There is no acute intracranial hemorrhage or significant mass effect. Noparenchymal attenuation abnormality. The trejo-white matter differentiationis preserved. The mastoid air cells and visualized paranasal air sinuses are clear. Thecalvarium and central skull base are unremarkable. FACE: The nasal bones and frontal processes of the maxilla are intact. The orbits, globes and other intraorbital structures are unremarkable. The maxilla and maxillary sinus leary are intact. The pterygoid plates areintact. Chronic appearing depressed fracture seen involving the right zygomaticarch. Unremarkable left zygomatic arch. The mandible, temporomandibular joints and dentition are unremarkable. The paranasal air sinuses and mastoid air cells are clear. The nasal septumis intact. CERVICAL SPINE: The cervical curvature is normal. The vertebralbodies are normal in heightand in normal alignment. No facet fracture or subluxation is present. Thecraniocervical junction is intact. The prevertebral soft tissues areunremarkable. No significant degenerative changes. The visualized cervical soft tissues and visualized lung apices areunremarkable.[facility] [id number] 19:39:57CT HEAD WO CONTRAST, CT MAXILLOFACIAL/MANDIBLE WO CONTRAST, CT CERVICALSPINE WO CONTRAST HISTORY: Head trauma, moderate-severe COMPARISON: None. TECHNIQUE: Nonenhanced CT scan of the head,face and cervical spine weredone in multiple dimensions. FINDINGS: HEAD: The ventricles and cerebral sulci are normal in caliber and configuration.No hydrocephalus, midline shift or pathological extra-axial fluidcollection is present. The basal cisterns are unremarkable. There is no acute intracranial hemorrhage or significant mass effect. Noparenchymal attenuation abnormality. The trejo-white matter differentiationis preserved. The mastoid air cells and visualized paranasal air sinuses are clear. Thecalvarium and central skull base are unremarkable. FACE: The nasal bones and frontal processes of the maxilla are intact. The orbits, globes and other intraorbital structures are unremarkable. The maxilla and maxillary sinus leary are intact. The pterygoid plates areintact. Chronic appearing depressed fracture seen involving the right zygomaticarch. Unremarkable left zygomatic arch. The mandible, temporomandibular joints and dentition are unremarkable. The paranasal air sinuses and mastoid air cells are clear. The nasal septumis intact. CERVICAL SPINE: The cervical curvature is normal. The vertebralbodies are normal in heightand in normal alignment. No facet fracture or subluxation is present. Thecraniocervical junction is intact. The prevertebral soft tissues areunremarkable. No significant degenerative changes. The visualized cervical soft tissues and visualized lung apices areunremarkable.[facility]MANDIBLE WO [id number] 19:39:57CT HEAD WO CONTRAST, CT MAXILLOFACIAL/MANDIBLE WO CONTRAST, CT CERVICALSPINE WO CONTRAST HISTORY: Head trauma, moderate-severe COMPARISON: None. TECHNIQUE: Nonenhanced CT scan of the head,face and cervical spine weredone in multiple dimensions. FINDINGS: HEAD: The ventricles and cerebral sulci are normal in caliber and configuration.No hydrocephalus, midline shift or pathological extra-axial fluidcollection is present. The basal cisterns are unremarkable. There is no acute intracranial hemorrhage or significant mass effect. Noparenchymal attenuation abnormality. The trejo-white matter differentiationis preserved. The mastoid air cells and visualized paranasal air sinuses are clear. Thecalvarium and central skull base are unremarkable. FACE: The nasal bones and frontal processes of the maxilla are intact. The orbits, globes and other intraorbital structures are unremarkable. The maxilla and maxillary sinus leary are intact. The pterygoid plates areintact. Chronic appearing depressed fracture seen involving the right zygomaticarch. Unremarkable left zygomatic arch. The mandible, temporomandibular joints and dentition are unremarkable. The paranasal air sinuses and mastoid air cells are clear. The nasal septumis intact. CERVICAL SPINE: The cervical curvature is normal. The vertebralbodies are normal in heightand in normal alignment. No facet fracture or subluxation is present. Thecraniocervical junction is intact. The prevertebral soft tissues areunremarkable. No significant degenerative changes. The visualized cervical soft tissues and visualized lung apices areunremarkable.[facility] 1 [id number] 19:21:50ORDERING PHYSICIAN: ? FARHAN SAXENA HISTORY:syncope ? TECHNIQUE: Single frontal view of the chest.?Technical quality:Diagnostic. ?RL: [id number] COMPARISON: none FINDINGS:.No consolidation, effusion, or pneumothorax identified. The cardiac silhouette is unremarkable. ?No acute bony abnormalitiesidentified.[facility] Vancomycin Trough Level - Draw within 30 minutes prior to 3RD dose.2022-10-17 06:58:40* Test Item Value Reference Range Interpretation Comme nts VANCO TROUGH (test code = 6514237426) 9.6 ug/mL 10.0-20.0 L DONALD (test code = DONALD) Toxic Range: ?>20 ug/mL 15-20 ug/mL is recommended for severe infection or when Vancomycin DEISY is greater than or equal to 2. Lab Interpretation (test code = 40950-8) Abnormal [facility] HospitalTransthoracic echo (TTE)2022-10-17 01:15:31* Test Item Value Reference Range Interpretation Comme nts Height (test code = 5521398270) in Weight (test code = 3710825623) lbs Systolic BP (test code = 4454457544) mmHg Diastolic BP (test code = 2726417572) mmHg Heart Rate (test code = 0770044695) bpm BSA (test code = 9412505180) 1.83 m2 Ao root diam (test code = 4136383335) 3.10 cm Aortic root (test code = 8679092789) 3.1 cm Ao root annulus (test code = 1165021048) 3.1 cm LA size (test code = 3913926123) 3.0 cm LVOT diameter (test code = 1609245034) 2.12 cm LVOT area (test code = 6072633772) 3.50 cm2 MV Prop V (test code = 3639834032) 85.00 cm/s MV Peak E Adalberto (test code = 0415004694) 89.1 cm/s MV Peak A Adalberto (test code = 3420043961) 57.4 cm/s E/A ratio (test code = 0614774540) ratio E wave decelartion time (test code = 6083065390) 0.15 s LAV(MOD-sp4) (test code = 8134109543) 35.70 mL LVOT stroke volume (test code = 3145455448) 74.10 cm3 LVOT peak adalberto (test code = 2423518962) 122.5 cm/s LVOT mn grad (test code = 3878037488) mmHg AV LVOT peak gradient (test code = 8191072561) mmHg LVOT peak VTI (test code = 8499743405) 20.9 cm LV V1 mean (test code = 8351353972) 74.10 cm/s Tapse (test code = 6872260195) 2.07 cm LA Volume Index (BP) (test code = 1288323901) 20.3 mL/m2 LA volume (BP) (test code = 0832378780) 37.0 mL LAV(MOD-sp2) (test code = 2279940904) 32.10 mL LVIDS (test code = 0804298438) 2.90 cm Left Ventricular End Systolic Volume by Teichholz Method (test code = 2676004) 31.2 mL EF(Teich) (test code = 2364788106) 53.60 % LVIDD (test code = 0562660502) 3.90 cm Left Ventricular End Diastolic Volume by Teichholz Method (test code = 3885473) 67.2 mL IVS (test code = 1977372145) 0.82 cm FS (test code = 0978163430) 27 % EF - 2D (test code = 97073501) 53.60 % Interventricular Septum Diastolic Thickness by 2D (test code = 0610868) 0.82 cm LVPWD (test code = 2506323037) 0.77 cm PW (test code = 3126659465) 0.77 cm 0.6-1.1 Radiology Study observation (narrative) (test code = 00252-0) DONALD (test code = DONALD) ?Left?Ventricle: Left ventricle [...] to left shunt viewable by saline contrast. Torres Sheikh MD Left VentricleLeft ventricle size is [...] agent used and saline contrast was performed. [facility]PREAL[facility]UMIN2023-[facility]-09 15:49:31* Test Item Value Reference Range Interpretation Comme nts PALB (test code = 08192-1) 12.9 mg/dL 18.0-45.0 L Lab Interpretation (test cod e = 12664-0) Abnormal [facility]PRE[facility]2023-[facility]-09 15:49:31* Test Item Value Reference Range Interpretation Comme nts PALB (test code = 82895-8) 12.9 mg/dL 18.0-45.0 L Lab Interpretation (test cod e = 49476-7) Abnormal [facility] HospitalPREGNANCY TEST, [id number] 15:37:56* Test Item Value Reference Range Interpretation Comme nts PREG SERUM (test code = 3520521586) Negative DONALD (test code = DONALD) Less than 10 IU/L. ?If low titer or ectopic is suspected, resubmit specimen in 48-72 hours. [facility] HospitalPREGNANCY TEST, [id number] 15:37:56* Test Item Value Reference Range Interpretation Comme nts PREG SERUM (test code = 2229680465) Negative DONALD (test code = DONALD) Less than 10 IU/L. ?If low titer or ectopic is suspected, resubmit specimen in 48-72 hours. [facility]. METABOLIC PANEL (63033)2022-10-14 21:57:50* Test Item Value Reference Range Interpretation Comme nts NA (test code = 3058170519) 140 mmol/L 135-145 K (test code = 2543989309) 4.4 mmol/L 3.5-5.0 CL (test code = 0789435143) 104 mmol/L 98-108 CO2 TOTAL (test code = 4134060138) 28 mmol/L 23-31 AGAP (test code = 4803313799) 2-16 BUN (test code = 6762859115) 18 mg/dL 7-23 GLUCOSE (test code = 3733642602) 102 mg/dL 70-110 CREATININE (test code = 1587069494) 0.59 mg/dL 0.50-1.04 TOTAL BILI (test code = 2353523089) 0.3 mg/dL 0.1-1.1 CALCIUM (test code = 3397761195) 9.0 mg/dL 8.6-10.6 T PROTEIN (test code = 6870097686) 7.7 g/dL 6.3-8.2 ALBUMIN (test code = 7409827159) 4.1 g/dL 3.5-5.0 ALK PHOS (test code = 9638987550) 97 U/L 34-122 ALTv (test code = 1742-6) 24 U/L 5-35 AST(SGOT) (test code = 9308283230) 28 U/L 13-40 eGFR (test code = 0570836253) mL/min/1.73m2 DONALD (test code = DONALD) Association [...] or urine or abnormalities in imaging tests). [facility] WITH [id number] 21:37:10* Test Item Value Reference Range Interpretation Comme nts WBC (test code = 6690-2) See_Comment [Automated messa ge] The system which generated this result transmitted reference range: 4.30 - 11.10 10*3/?L. The reference range was not used to interpret this result as normal/abnormal. RBC (test code = 789-8) See_Comment [Automated messa ge] The system which [...] g/dL 31.6-35.1 L RDW-SD (test code = 91883-6) 50.4 fL 39.0-49.9 H RDW-CV (test code = 788-0) 16.8 % 12.0-15.5 H PLT (test code = 777-3) See_Comment H [Automated messa ge] The system which generated this result transmitted reference range: 166 - 358 10*3/?L. The reference range was not used to interpret this result as normal/abnormal. MPV (test code = 61746-1) 10.5 fL 9.5-12.9 NRBC/100 WBC (test code = 8172827529) See_Comment [Automated [employer] ssage] The system which generated this result transmitted reference range: 0.0 - 10.0 /100 WBCs. The reference range was not used to interpret this result as normal/abnormal. NRBC x10^3 (test code = 3596176749) See_Comment [Automated messa ge] The system which generated this result transmitted reference range: 10*3/?L. The reference range was not used to interpret this result as normal/abnormal. GRAN MAT (NEUT) % (test code = 770-8) 57.9 % IMM GRAN % (test code = 6205040534) 0.40 % LYMPH % (test code = 736-9) 27.9 % MONO % (test code = 5905-5) 7.3 % EOS % (test code = 713-8) 5.8 % BASO % (test code = 706-2) 0.7 % GRAN MAT x10^3(ANC) (test code = 7050554021) 4.10 10*3/uL 1.88-7.09 IMM GRAN x10^3 (test code = 2321482100) 0.03 10*3/uL 0.00-0.06 LYMPH x10^3 (test code = 731-0) 1.98 10*3/uL 1.32-3.29 MONO x10^3 (test code = 742-7) 0.52 10*3/uL 0.33-0.92 EOS x10^3 (test code = 711-2) 0.41 10*3/uL 0.03-0.39 H BASO x10^3 (test code = 704-7) 0.05 10*3/uL 0.01-0.07 Lab Interpretation (test code = 43493-3) Abnormal [facility] Notes Date/Time Note Provider Source 2024-08-22 15:50:44 Pt c/o not receiving results from provider, asked pt several times if she would like this RN to ask provider to speak with pt, pt refused. Pt states "y'all are just the nurses, he should of came in in the first place, why would I want to talk to a doctor who won't do his job." Pt also upset about medications prescribed, pt stated " I cannot take naproxen, I am allergic to it, every time I take it I break out, why is he not prescribing me any real medications, only ones that I have never heard of, I'll just go to [facility], I'll have better luck there." Attempted to educate pt on treatment of musculoskeletal pain and contusions, pt still upset and not receptive of education. Pt denied allergies in triage. A&Ox4, NAD. Pt given printed discharge instructions, refused vital signs. 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 Newton RN [facility] 2024-08-22 12:03:00 Images from the original note were not included. 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 She complains of chin laceration is 3 days old it has been bandaged and clean. She has a left-sided rib pain. Pain with deep inspiration. No hypoxia. Fell, unknown loss of consciousness but seems as though she was awake. Hit head and face. Internal lip laceration. Past Medical History/Immunizations: Past Medical History: Diagnosis Date Heart murmur Ventricular septal defect Tetanus received in last 5 years: Yes Childhood immunizations: Up-to-date Allergies: No Known Allergies Past Social History: Tobacco Use Every Day; Types: Cigarettes Passive Exposure: Never Smokeless Tobacco: Never used smokeless tobacco. Past Surgical History: Past Surgical History: Procedure Laterality Date HAND DEBRIDEMENT Left 10/15/2022 Surgeon: Dao Estrada MD; [facility] Review of Systems: Review of Systems Respiratory: Positive for chest tightness and shortness of breath. Cardiovascular: Positive for chest pain. Gastrointestinal: Negative for nausea and vomiting. Skin: Positive for wound. Neurological: Positive for syncope and light-headedness. Physical Exam: ED Triage Vitals [08/22/24 1214] Weight 70.3 kg (155 lb) Actual or estimated Estimated by patient/family report Height 1.626 m (5' 4") BP 118/76 Pulse 89 Resp 16 Temp 36.4 ?C (97.5 ?F) Temp source Oral SpO2 100 % Measured on Room air Physical Exam Vitals and nursing note reviewed. Constitutional: General: She is not in acute distress. Appearance: She is well-developed. She is not diaphoretic. HENT: Head: Normocephalic. Comments: Chin laceration, healing. Right Ear: External ear normal. Left Ear: External ear normal. Nose: Nose normal. Eyes: General: No scleral icterus. Conjunctiva/sclera: Conjunctivae normal. Pupils: Pupils are equal, round, and reactive to light. Cardiovascular: Rate and Rhythm: Normal rate and regular rhythm. Heart sounds: Normal heart sounds. Pulmonary: Effort: Pulmonary effort is normal. Breath sounds: Normal breath sounds. Chest: Comments: Tenderness to left rib space. Abdominal: General: Bowel sounds are normal. Palpations: Abdomen is soft. Tenderness: There is no abdominal tenderness. Musculoskeletal: General: Normal range of motion. Cervical back: Normal range of motion and neck supple. Skin: General: Skin is warm and dry. Neurological: Mental Status: She is alert and oriented to person, place, and time. Cranial Nerves: No cranial nerve deficit. Deep Tendon Reflexes: Reflexes are normal and symmetric. Psychiatric: Behavior: Behavior normal. Thought Content: Thought content normal. Radiology: CT HEAD WO CONTRAST Final Result CT HEAD WO CONTRAST, CT MAXILLOFACIAL/MANDIBLE WO CONTRAST, CT CERVICAL SPINE WO CONTRAST HISTORY: Head trauma, moderate-severe COMPARISON: None. TECHNIQUE: Nonenhanced CT scan of the head,face and cervical spine were done in multiple dimensions. FINDINGS: HEAD: The ventricles and cerebral sulci are normal in caliber and configuration. No hydrocephalus, midline shift or pathological extra-axial fluid collection is present. The basal cisterns are unremarkable. There is no acute intracranial hemorrhage or significant mass effect. No parenchymal attenuation abnormality. The trejo-white matter differentiation is preserved. The mastoid air cells and visualized paranasal air sinuses are clear. The calvarium and central skull base are unremarkable. FACE: The nasal bones and frontal processes of the maxilla are intact. The orbits, globes and other intraorbital structures are unremarkable. The maxilla and maxillary sinus leary are intact. The pterygoid plates are intact. Chronic appearing depressed fracture seen involving the right zygomatic arch. Unremarkable left zygomatic arch. The mandible, temporomandibular joints and dentition are unremarkable. The paranasal air sinuses and mastoid air cells are clear. The nasal septum is intact. CERVICAL SPINE: The cervical curvature is normal. The vertebral bodies are normal in height and in normal alignment. No facet fracture or subluxation is present. The craniocervical junction is intact. The prevertebral soft tissues are unremarkable. No significant degenerative changes. The visualized cervical soft tissues and visualized lung apices are unremarkable. IMPRESSION No acute intracranial abnormality seen. No acute facial fractures. No acute fractures or traumatic malalignment in the cervical spine. CT CERVICAL SPINE WO CONTRAST Final Result CT HEAD WO CONTRAST, CT MAXILLOFACIAL/MANDIBLE WO CONTRAST, CT CERVICAL SPINE WO CONTRAST HISTORY: Head trauma, moderate-severe COMPARISON: None. TECHNIQUE: Nonenhanced CT scan of the head,face and cervical spine were done in multiple dimensions. FINDINGS: HEAD: The ventricles and cerebral sulci are normal in caliber and configuration. No hydrocephalus, midline shift or pathological extra-axial fluid collection is present. The basal cisterns are unremarkable. There is no acute intracranial hemorrhage or significant mass effect. No parenchymal attenuation abnormality. The trejo-white matter differentiation is preserved. The mastoid air cells and visualized paranasal air sinuses are clear. The calvarium and central skull base are unremarkable. FACE: The nasal bones and frontal processes of the maxilla are intact. The orbits, globes and other intraorbital structures are unremarkable. The maxilla and maxillary sinus leary are intact. The pterygoid plates are intact. Chronic appearing depressed fracture seen involving the right zygomatic arch. Unremarkable left zygomatic arch. The mandible, temporomandibular joints and dentition are unremarkable. The paranasal air sinuses and mastoid air cells are clear. The nasal septum is intact. CERVICAL SPINE: The cervical curvature is normal. The vertebral bodies are normal in height and in normal alignment. No facet fracture or subluxation is present. The craniocervical junction is intact. The prevertebral soft tissues are unremarkable. No significant degenerative changes. The visualized cervical soft tissues and visualized lung apices are unremarkable. IMPRESSION No acute intracranial abnormality seen. No acute facial fractures. No acute fractures or traumatic malalignment in the cervical spine. CT MAXILLOFACIAL/MANDIBLE WO CONTRAST Final Result CT HEAD WO CONTRAST, CT MAXILLOFACIAL/MANDIBLE WO CONTRAST, CT CERVICAL SPINE WO CONTRAST HISTORY: Head trauma, moderate-severe COMPARISON: None. TECHNIQUE: Nonenhanced CT scan of the head,face and cervical spine were done in multiple dimensions. FINDINGS: HEAD: The ventricles and cerebral sulci are normal in caliber and configuration. No hydrocephalus, midline shift or pathological extra-axial fluid collection is present. The basal cisterns are unremarkable. There is no acute intracranial hemorrhage or significant mass effect. No parenchymal attenuation abnormality. The trejo-white matter differentiation is preserved. The mastoid air cells and visualized paranasal air sinuses are clear. The calvarium and central skull base are unremarkable. FACE: The nasal bones and frontal processes of the maxilla are intact. The orbits, globes and other intraorbital structures are unremarkable. The maxilla and maxillary sinus leary are intact. The pterygoid plates are intact. Chronic appearing depressed fracture seen involving the right zygomatic arch. Unremarkable left zygomatic arch. The mandible, temporomandibular joints and dentition are unremarkable. The paranasal air sinuses and mastoid air cells are clear. The nasal septum is intact. CERVICAL SPINE: The cervical curvature is normal. The vertebral bodies are normal in height and in normal alignment. No facet fracture or subluxation is present. The craniocervical junction is intact. The prevertebral soft tissues are unremarkable. No significant degenerative changes. The visualized cervical soft tissues and visualized lung apices are unremarkable. IMPRESSION No acute intracranial abnormality seen. No acute facial fractures. No acute fractures or traumatic malalignment in the cervical spine. XR CHEST 1 VW Final Result ORDERING PHYSICIAN: FARHAN SAXENA HISTORY:syncope TECHNIQUE: Single frontal view of the chest. Technical quality: Diagnostic. RL: 9332 COMPARISON: none FINDINGS: . No consolidation, effusion, or pneumothorax identified. The cardiac silhouette is unremarkable. No acute bony abnormalities identified. IMPRESSION No acute process Lab Results: Lab Results CBC WITH DIFF - Abnormal Result Value Ref Range WBC 7.48 4.30 - 11.10 10*3/?L RBC 4.28 3.93 - 5.25 10*6/?L HGB 11.6 11.6 - 15.0 g/dL HCT 36.9 35.7 - 45.2 % MCV 86.2 80.6 - 95.5 fL MCH 27.1 25.9 - 32.8 pg MCHC 31.4 (*) 31.6 - 35.1 g/dL RDW-SD 42.8 39.0 - 49.9 fL RDW-CV 13.6 12.0 - 15.5 % PLT 346 166 - 358 10*3/?L MPV 10.5 9.5 - 12.9 fL NRBC/100 WBC 0.0 0.0 - 10.0 /100 WBCs NRBC x10 3 <0.01 10*3/?L GRAN MAT (NEUT) % 62.7 % IMM GRAN % 0.30 % LYMPH % 26.6 % MONO % 6.7 % EOS % 3.3 % BASO % 0.4 % GRAN MAT x10 3 (ANC) 4.69 1.88 - 7.09 10*3/uL IMM GRAN x10 3 <0.03 0.00 - 0.06 10*3/uL LYMPH x10 3 1.99 1.32 - 3.29 10*3/uL MONO x10 3 0.50 0.33 - 0.92 10*3/uL EOS x10 3 0.25 0.03 - 0.39 10*3/uL BASO x10 3 0.03 0.01 - 0.07 10*3/uL COMP. METABOLIC PANEL (72572) TROPONIN I EKG: If EKG completed, see Procedure Note. Orders and Treatments: Orders Placed This Encounter Procedures XR CHEST [address] HEAD WO CONTRAST CT CERVICAL SPINE WO CONTRAST CT MAXILLOFACIAL/MANDIBLE WO CONTRAST Cbc with Diff Comp. Metabolic Panel (26901) Troponin I Orders Placed This Encounter Medications HYDROcodone-acetaminophen (NORCO) 10-325 mg tablet 1 tablet naproxen sodium 550 mg tablet methylPREDNISolone 4 mg tablets methocarbamoL 500 mg tablet First Provider Eval: ED Events Date/Time Event User Comments 08/22/24 1221 Medical Screening Begins FARHAN SAXENA -- 08/22/24 1221 First Provider Evaluation FARHAN SAXENA -- ED COURSE Diagnosis/Impression as of 08/22/24 1516 Syncope, unspecified syncope type Facial laceration, initial encounter Contusion of rib on left side, initial encounter Procedures: Procedures MDM: Medical Decision Making Problems Addressed: Contusion of rib on left side, initial encounter: acute illness or injury Facial laceration, initial encounter: acute illness or injury Syncope, unspecified syncope type: acute illness or injury Amount and/or Complexity of Data Reviewed Labs: ordered. Radiology: ordered. Risk Prescription drug management. Flowsheet Documentation: Scoring Tools: No data recorded Disposition/Condition: ED Disposition ED Disposition Discharge Condition Stable Comment -- Discharge Medications: Patient's Medications START taking these medications METHOCARBAMOL 500 MG TABLET Take 1 tablet by mouth in the morning and 1 tablet at noon and 1 tablet in the evening. Do all this for 5 days. METHYLPREDNISOLONE 4 MG TABLETS Take by mouth SEE-INSTRUCTIONS. follow package directions NAPROXEN SODIUM 550 MG TABLET Take 1 tablet by mouth in the morning and 1 tablet in the evening. Take with meals. CONTINUE taking these medications which have NOT CHANGED CLINDAMYCIN 300 MG CAPSULE Take 1 capsule by mouth 3 (three) times daily. SODIUM HYPOCHLORITE (DAKINS) 0.025% TOPICAL SOLUTION Apply to area(s) 2 (two) times daily. TRAMADOL (ULTRAM) 50 MG TABLET Take 1 tablet by mouth every 6 (six) hours as needed for Pain (scale 7-10). START taking Modified Medications as Prescribed No medications on file STOP taking these medications No medications on file Follow-up: Contact information for follow-up [facility] [address], [address] [facility] [id number] Instructions: for follow up of your emergency visit. [facility]Emergency Department Specialty: Emergency Medicine [address], [place] [address] Instructions: If symptoms worsen as documented in the discharge Electronically signed by: Farhan Saxena DO 08/22/[address] [facility]
--- NOTE | 2024-12-27 21:04 | RAD REPORT ---
Procedure: Chest Single View HISTORY: Chest pain COMPARISON: 2023 FINDINGS: The lungs appear clear of acute infiltrate. No significant pleural effusion noted. The heart is normal size. IMPRESSION: No acute abnormality is displayed.
--- NOTE | 2024-12-27 21:07 | EDPHYS ---
Physician Documentation [facility] Name: Lennie Russell Age: 49 yrs Sex: Female : 1975 Arrival Date: 12/27/2024 Time: 19:48 Bed 3 Private MD: ED Physician Royal Rodriguez HPI: 12/27 20:03 This 49 yrs old Female presents to ER via Unassigned with complaints of Sore sp4 Throat. 12/28 01:02 Patient presents with EMS from a local custodial. Patient states she had unpaid warrants.. sp4 Patient states that at this time she is suffering from respiratory illness associated with sore throat, cough congestion sinus drainage and yellow to purulent sputum.. Historical: - Allergies: 12/27 20:04 No Known Allergies; jj7 - PMHx: 20:04 ventricular septal defect; jj7 - PSHx: 20:04 None; jj7 - Immunization history:: Adult Immunizations up to date. - Infectious Disease History:: Denies. - Social history:: Smoking status: Patient reports the use of cigarette tobacco products, Patient uses alcohol, Patient/guardian denies using IV drugs. - Family history:: not pertinent. ROS: 12/28 01:02 Constitutional: Negative for fever, chills, and weight loss, positive for cough, sp4 positive sore throat, positive congestion, positive sinus drainage, positive yellow purulent sputum. Positive feeling unwell and anxious All other systems are negative, Exam: 01:02 Constitutional: This is a well developed, well nourished patient who is awake, alert, sp4 and in no acute distress. Head/Face: Normocephalic, atraumatic. Eyes: Pupils equal round and reactive to light, extra-ocular motions intact. Lids and lashes normal. Conjunctiva and sclera are not injected. Cornea within normal limits. Periorbital areas with no swelling, redness, or edema. ENT: Nares patent. No nasal discharge, no septal abnormalities noted. Tympanic membranes are normal and external auditory canals are clear. Oropharynx with no redness, swelling, or masses, exudates, or evidence of obstruction, uvula midline. Mucous membranes moist. Neck: Trachea midline, no thyromegaly or masses palpated, and no cervical lymphadenopathy. Supple, full range of motion without nuchal rigidity, or vertebral point tenderness. Chest/axilla: Normal chest wall appearance and motion. Nontender with no deformity. No lesions are appreciated. Cardiovascular: Regular rate and rhythm with a normal S1 and S2. No gallops, murmurs, or rubs. Normal PMI, no JVD. No pulse deficits. Respiratory: Lungs have equal breath sounds bilaterally, clear to auscultation and percussion. No rales, rhonchi or wheezes noted. No increased work of breathing, no retractions or nasal flaring. Abdomen/GI: Soft, with normal bowel sounds. No distension or tympany. No guarding or rebound. No evidence of tenderness throughout. Back: No spinal tenderness. No costovertebral tenderness. Skin: Warm, dry with normal turgor. Normal color with no rashes, no lesions, and no evidence of cellulitis. MS/ Extremity: Pulses equal, no cyanosis. Neurovascular intact. Full, normal range of motion. Neuro: Awake and alert, GCS 15, oriented to person, place, time, and situation. Cranial nerves II-XII grossly intact. Motor strength 5/5 in all extremities. Sensory grossly intact. Psych: Awake, alert, with orientation to person, place and time. Behavior, mood, and affect are within normal limits 01:02 ECG was reviewed by the Attending Physician. EKG at 2026 heart rate 80 Vital Signs: 12/27 20:00 BP 138 / 86; Pulse 75; Resp 17; Temp 98.7; Pulse Ox 100% ; Weight 68.04 kg; Height 5 jj7 ft. 2 in. ; 21:00 BP 130 / 87; Pulse 71; Resp 20; Pulse Ox 100% ; jj7 21:38 BP 132 / 82; Pulse 76; Resp 19; Temp 98.1; Pulse Ox 99% ; jj7 20:00 Body Mass Index 27.44 (68.04 kg, 157.48 cm) 7 [place] Coma Score: 12/28 01:02 Eye Response: spontaneous(4). Motor Response: obeys commands(6). Verbal Response: sp4 oriented(5). Total: 15. MDM: 12/27 20:09 Medical Screening Exam initiated sp4 22:43 ED course: Procedure: Chest Single View HISTORY: Chest pain COMPARISON: 2023 FINDINGS: sp4 The lungs appear clear of acute infiltrate. No significant pleural effusion noted. The heart is normal size. IMPRESSION: No acute abnormality is displayed. . 12/28 01:07 Differential diagnosis: Allergic rhinitis, bronchitis, gingivostomatitis, group A strep sp4 tonsillitis, laryngitis, pharyngitis. Data reviewed: vital signs, nurses notes, EMS record, old medical records, EKG. ED course: Patient has refused labs. Chest x-ray is normal. Patient prescribed Zithromax for cough associated with purulent sputum and for signs of acute pharyngitis and sinusitis. Stable for discharge at this time.. 12/27 20:03 Order name: XRAY Chest (1 view); Complete Time: 21:14 [facility] 12/27 20:03 Order name: Cardiac monitoring [facility] 12/27 20:03 Order name: EKG - Nurse/Tech; Complete Time: 20:56 [facility] 12/27 20:03 Order name: IV Saline Lock [facility] 12/27 20:03 Order name: Labs collected and sent [facility] 12/27 20:03 Order name: O2 Per Protocol 4 12/27 20:03 Order name: O2 Sat Monitoring sp4 EC/22 20:27 Rate is 80 beats/min. Rhythm is regular, Normal Sinus Rhythm. QRS [place] is Normal. [place] sp4 interval is normal. QRS interval is normal. QT interval is normal. No Q waves. T waves are Normal. No ST changes noted. Clinical impression: Normal ECG. Interpreted by me. Reviewed by me. Administered Medications: 21:36 Drug: AZITHromycin PO 500 mg PO once Route: PO; jj7 21:42 Follow up: Response: No adverse reaction jj7 21:36 Drug: Ondansetron PO 4 mg PO once Route: PO; jj7 21:44 Follow up: Response: No adverse reaction jj7 21:36 Drug: Dextromethorphan-Guaifenesin PO Liquid 10 mg-100 mg/5 mL 10 ml PO once Route: PO; jj7 21:42 Follow up: Response: No adverse reaction jj7 21:36 Drug: Ibuprofen PO 800 mg PO once Route: PO; jj7 21:42 Follow up: Response: No adverse reaction jj7 21:36 Drug: Acetaminophen PO 1000 mg PO once Route: PO; jj7 21:42 Follow up: Response: No adverse reaction jj7 Disposition: 12/28 01:08 Chart complete. sp4 Disposition Summary: 12/27/24 21:06 Discharge Ordered Notes: Location: Home sp4 Problem: new sp4 Symptoms: have improved sp4 Condition: Stable sp4 Diagnosis - Cough sp4 - Acute pharyngitis, unspecified sp4 - Nasal congestion sp4 - Acute upper respiratory infection sp4 Discharge Instructions: - Discharge Summary Sheet sp4 - Pharyngitis sp4 Forms: - Patient Portal Instructions sp4 Prescriptions: - dextromethorphan-guaifenesin 20-400 mg Oral tablet - take 1 tablet ORAL route every 6 hours PRN cough; 60 tablet; Refills: 0, sp4 Product Selection Permitted - Ibuprofen 800 mg Oral Tablet - take 1 tablet ORAL route every 8 hours As needed take with food; 30 tablet; sp4 Refills: 0, Product Selection Permitted - Zithromax Z-[place] 250 mg Oral Tablet - take 1 tablet ORAL route as directed for 5 days Day 1 - take two (2) tablets sp4 one time. Day 2, 3, 4 , 5 take one (1) tablet once daily.; 6 tablet; Refills: 0, Product Selection Permitted Signatures: Dispatcher [employer] Cara Gann RN RN jj7 Royal Rdoriguez MD MD sp4 Corrections: (The following items were deleted from the chart) 12/27 20:04 20:04 BASIC METABOLIC PANEL+C.LAB.BRZ ordered. EDMS EDMS 20:04 20:04 CBC+H.LAB.BRZ ordered. EDMS EDMS 20:04 20:04 HEPATIC FUNCTION+C.LAB.BRZ ordered. EDMS EDMS 20:04 20:04 MAGNESIUM+C.LAB.BRZ ordered. EDMS EDMS 20:04 20:04 PROBNP+C.LAB.BRZ ordered. EDMS EDMS 20:04 20:04 Troponin High Sensitivity+C.LAB.BRZ ordered. EDMS EDMS 20:04 20:04 Chest Single View+RAD.RAD.BRZ ordered. EDMS EDMS
--- NOTE | 2024-12-27 21:07 | ER ---
Nurse's Notes [facility] Name: Lennie Russell Age: 49 yrs Sex: Female : 1975 Arrival Date: 12/27/2024 Time: 19:48 Bed 3 Private MD: Diagnosis: Cough;Acute pharyngitis, unspecified;Nasal congestion;Acute upper respiratory infection Presentation: 12/27 20:00 Chief complaint: EMS states: CP X 3-4 DAYS. Chief complaint: Patient states: PT CAME jj7 FROM [facility]. C/O OF SORE THROAT, NECK PAIN,NASAL CONGESTION, AND HEADACHE. Coronavirus screen: At this time, the client does not indicate any symptoms associated with coronavirus-19. Ebola Screen: No symptoms or risks identified at this time. Initial Sepsis Screen: Does the patient meet any 2 criteria? No. Patient's initial sepsis screen is negative. Does the patient have a suspected source of infection? No. Patient's initial sepsis screen is negative. Risk Assessment: Do you want to hurt yourself or someone else? Patient reports no desire to harm self or others. Onset of symptoms was December 27, 2024. 20:00 Method Of Arrival: EMS: [facility] jj7 20:00 Acuity: KATHERINE 4 jj7 Triage Assessment: 20:04 General: Appears in no apparent distress. uncomfortable, Behavior is calm, cooperative, jj7 appropriate for age. EENT: Reports pain SORE THROAT . Respiratory: Reports NASAL CONGESTION. Historical: - Allergies: 20:04 No Known Allergies; jj7 - PMHx: 20:04 ventricular septal defect; jj7 - PSHx: 20:04 None; jj7 - Immunization history:: Adult Immunizations up to date. - Infectious Disease History:: Denies. - Social history:: Smoking status: Patient reports the use of cigarette tobacco products, Patient uses alcohol, Patient/guardian denies using IV drugs. - Family history:: not pertinent. Screenin:00 [facility] ED Fall Risk Assessment (Adult) History of falling in the last 3 months, jj7 including since admission No falls in past 3 months (0 pts) Confusion or Disorientation No (0 pts) Intoxicated or Sedated No (0 pts) Impaired Gait No (0 pts) Mobility Assist Device Used No (0 pt) Altered Elimination No (0 pt) Score/Fall Risk Level 0 - 2 = Low Risk Oriented to surroundings, Maintained a safe environment, Educated pt \T\ family on fall prevention, incl call for assistance when getting out of bed, Assessed \T\ reinforced patient's understanding of fall precautions. Abuse screen: Denies threats or abuse. Nutritional screening: No deficits noted. Tuberculosis screening: No symptoms or risk factors identified. Assessment: 20:00 Reassessment: SEE TRIAGE ASSESSMENT. j7 21:00 Reassessment: PT IS A DIFFICULT. MD INFORMED. MD STATES CANCEL IV AND BLOOD WORK. jj7 21:41 Respiratory: Airway is patent Respiratory effort is even, unlabored, Breath sounds are j7 clear bilaterally. EENT: Throat is reddened. Vital Signs: 20:00 BP 138 / 86; Pulse 75; Resp 17; Temp 98.7; Pulse Ox 100% ; Weight 68.04 kg; Height 5 j7 ft. 2 in. ; 21:00 BP 130 / 87; Pulse 71; Resp 20; Pulse Ox 100% ; jj7 21:38 BP 132 / 82; Pulse 76; Resp 19; Temp 98.1; Pulse Ox 99% ; jj7 20:00 Body Mass Index 27.44 (68.04 kg, 157.48 cm) j Terell Coma Score: 12/28 01:02 Eye Response: spontaneous(4). Motor Response: obeys commands(6). Verbal Response: sp4 oriented(5). Total: 15. ED Course: 12/27 19:56 Patient arrived in ED. jj7 20:00 Patient has correct armband on for positive identification. Bed in low position. Call j light in reach. Side rails up X 1. Adult w/ patient. Client placed on continuous cardiac and pulse oximetry monitoring. NIBP monitoring applied. Warm blanket given. 20:00 Provided Education on: USE OF CALL GERMAN. jj7 20:03 Royal Rodriguez MD is Attending Physician. sp4 20:04 Triage completed. jj7 20:04 Arm band placed on right wrist. jj7 20:57 XRAY Chest (1 view) In Process Unspecified. EDMS 21:05 Royal Rodriguez MD is Referral Physician. sp4 21:38 No provider procedures requiring assistance completed. Patient did not have IV access jj7 during this emergency room visit. Administered Medications: 21:36 Drug: AZITHromycin PO 500 mg PO once Route: PO; jj7 21:42 Follow up: Response: No adverse reaction jj7 21:36 Drug: Ondansetron PO 4 mg PO once Route: PO; jj7 21:44 Follow up: Response: No adverse reaction jj7 21:36 Drug: Dextromethorphan-Guaifenesin PO Liquid 10 mg-100 mg/5 mL 10 ml PO once Route: PO; jj7 21:42 Follow up: Response: No adverse reaction jj7 21:36 Drug: Ibuprofen PO 800 mg PO once Route: PO; jj7 21:42 Follow up: Response: No adverse reaction jj7 21:36 Drug: Acetaminophen PO 1000 mg PO once Route: PO; jj7 21:42 Follow up: Response: No adverse reaction jj7 Medication: 20:00 VIS not applicable for this client. jj7 Outcome: 21:06 Discharge ordered by MD. palomo 21:38 Discharged to home ambulatory, jj7 21:38 Condition: good 21:38 Discharge instructions given to patient, Instructed on discharge instructions, medication usage, Demonstrated understanding of instructions, medications, Prescriptions given X 3, 21:43 Patient left the ED. jj7 Signatures: Dispatcher [employer] Cara Gann RN RN jj7 Royal Rodriguez MD MD sp4
[2024-12-27] MEDS ORDERED: ONDANSETRON 4 MG (ODT) TAB ONE (21:31)
[2024-12-27] MEDS ORDERED: GUAIFENESIN/DM 5 ML UCUP ONE (21:31)
[2024-12-27] MEDS ORDERED: IBUPROFEN 400 MG TAB ONE (21:31)
[2024-12-27] MEDS ORDERED: ACETAMINOPHEN 500 MG TAB ONE (21:31)
[2024-12-27] MEDS ORDERED: AZITHROMYCIN 250 MG TAB ONE (21:31)
[2024-12-27 21:50] VITALS: BP 132/82; TEMP 98.1; O2SAT 99
--- NOTE | 2024-12-29 12:03 | EKG ---
Test Date: 2024-12-27 Test Time: 20:27:16 Comb Machine Operator: SINGH MEASUREMENT RESULTS: Intervals: Rate: 80 SC: 146 QRSD: 74 QT: 392 QTc: 452 [place]: P: 78 SC: 146 QRS: 49 T: 60 INTERPRETIVE STATEMENTS: Normal sinus rhythm Septal infarct, age undetermined Abnormal ECG Compared to ECG 06/28/2023 17:01:47 Myocardial infarct finding now present Sinus tachycardia no longer present Atrial abnormality no longer present T-wave abnormality no longer present Electronically Signed On 12-29-24 12:00:03 CDT by Jaciel Everett
== END 2024-12-27 21:43 | disposition home or self-care (01) ==
LOC: ER 19:48
DX: J06.9 Acute upper respiratory infection, unspecified (principal); J02.9 Acute pharyngitis, unspecified; R09.81 Nasal congestion; Z72.0 Tobacco use
CPT/HCPCS: 93005; 71045; 99284; Q0162